=== PATIENT | male | born 1935 | race Caucasian/White ===

== ENCOUNTER → 2016-09-11 | Outpatient (CLI) | payer MEDICARE, BC ==
[~2016-09-11] MED LIST: /ESOM40CA; COLA100C2; NEUR300C; PERC5TAB8
[2016-09-11 07:49] LABS: MEAN CORPUSCULAR HEMOGLOBIN 31.1 pg (27.0-33.0); MEAN CORPUSCULAR HGB CONC 33.7 g/dl (32.0-36.5); MEAN CORPUSCULAR VOLUME 92.5 fl (80.0-96.0); RED CELL DISTRIBUTION WIDTH 13.3 % (11.5-14.5)
[2016-09-11 08:18] LABS: ALBUMIN 3.4 GM/DL (3.2-5.2); ALBUMIN/GLOBULIN RATIO 0.94 (1.00-1.93); ALKALINE PHOSPHATASE 46 U/L (45-117); ALT/SGPT 19 U/L (12-78); ANION GAP 7 MEQ/L (8-16); AST/SGOT 13 U/L (15-37); BILIRUBIN,TOTAL 0.5 MG/DL (0.2-1.0); BLOOD UREA NITROGEN 17 MG/DL (7-18); CALCIUM LEVEL 9.3 MG/DL (8.8-10.2); CARBON DIOXIDE LEVEL 32 MEQ/L (21-32); CHLORIDE LEVEL 107 MEQ/L (98-107); CHOLESTEROL LEVEL 203 MG/DL (<200); CREATININE FOR GFR 0.94 MG/DL (0.70-1.30); GLOMERULAR FILTRATION RATE > 60.0 (>35); GLUCOSE, FASTING 88 MG/DL (83-110); POTASSIUM SERUM 3.9 MEQ/L (3.5-5.1); SODIUM LEVEL 146 MEQ/L (136-145); TRIGLYCERIDES LEVEL 87 MG/DL (<150)
--- NOTE | 2016-09-11 18:47 | ECGEPIP ---
Stationary ECG Study [facility] Test Date: 2016-09-11 Pat Name: HARRISON SANDERS Department: Room: - Gender: M Strap Buckler: RANDAL : 1935 Requested By: Justice Quinones Order Number: [id number] Reading MD: Bernabe Moy Measurements Intervals [place] Rate: 60 P: 11 AL: 157 QRS: -17 QRSD: 94 T: -1 QT: 390 QTc: 390 Interpretive Statements SINUS RHYTHM WITH ONE SUPRAVENTRICULAR PREMATURE COMPLEX PAC new compared with 04/09/2014. Electronically Signed On 09-11-2016 18:47:31 EDT by Bernabe Moy
== END ==
LOC: M LAB 06:52
PROVIDERS: ATTEND Family Medicine
DX: I20.9 Angina pectoris, unspecified (principal); R94.31 Abnormal electrocardiogram [ECG] [EKG]; Z79.899 Other long term (current) drug therapy

== ENCOUNTER → 2016-09-30 | Outpatient (CLI) | payer MEDICARE, BC ==
[~2016-09-30] MED LIST changes: +ISOVUE-370 76% 100ML VIAL (Q9967) As Ordered ONE
--- NOTE | 2016-09-30 13:43 | REP ---
CT CHEST WITH IV CONTRAST: TECHNIQUE: Axial contrast enhanced images from the thoracic inlet to the upper abdomen using 100 mL Isovue 370 intravenous contrast material with multiplanar reformations. Comparison is made with prior study of 03/11/2009. There is diffuse interstitial fibrotic change bilaterally, which has worsened since the prior exam. There is extensive bilateral subpleural interstitial fibrosis and mild honeycombing in the right lower lobe and bilateral upper lobes. Scattered subcentimeter nodular opacities bilaterally have remained stable since 2008 with no new suspicious nodule identified. There is no consolidative infiltrate. There is no pleural or pericardial effusion. There are atherosclerotic calcifications of the thoracic aorta without aneurysm. No significant adenopathy is seen in the chest. Metallic plate and screws are seen in the lower cervical spine. There is an old compression deformity of L2 vertebral body. There are diffuse degenerative changes of the spine. There is a left renal cyst noted. There is a gallstone in the gallbladder which measures 1.7 cm in diameter. There is a moderate to large hiatal hernia. IMPRESSION: Moderate interstitial fibrotic changes have worsened since prior CT of 03/11/2009. Subcentimeter nodular opacities bilaterally are stable and benign. No suspicious nodule is seen. Increased size of moderate to large hiatal hernia. There is a gallstone in the gallbladder. Signed by Talon Red MD 09/30/2016 07:13 P
== END ==
LOC: M RAD 12:09
PROVIDERS: ATTEND Family Medicine
DX: R91.1 Solitary pulmonary nodule (principal)
CPT/HCPCS: 71260; Q9967

== ENCOUNTER → 2017-01-15 | Outpatient (CLI) | payer MEDICARE, BC ==
[~2017-01-15] MED LIST changes: -ISOVUE-370 76% 100ML VIAL (Q9967) As Ordered ONE
[2017-01-15 07:53] LABS: MEAN CORPUSCULAR HEMOGLOBIN 30.9 pg (27.0-33.0); MEAN CORPUSCULAR HGB CONC 33.5 g/dl (32.0-36.5); MEAN CORPUSCULAR VOLUME 92.4 fl (80.0-96.0); RED CELL DISTRIBUTION WIDTH 13.3 % (11.5-14.5)
[2017-01-15 08:33] LABS: ALBUMIN 3.4 GM/DL (3.2-5.2); ALKALINE PHOSPHATASE 44 U/L (45-117); ALT/SGPT 19 U/L (12-78); ANION GAP 5 MEQ/L (8-16); AST/SGOT 15 U/L (15-37); BILIRUBIN,TOTAL 0.7 MG/DL (0.2-1.0); BLOOD UREA NITROGEN 13 MG/DL (7-18); CALCIUM LEVEL 8.8 MG/DL (8.8-10.2); CARBON DIOXIDE LEVEL 33 MEQ/L (21-32); CHLORIDE LEVEL 108 MEQ/L (98-107); CHOLESTEROL LEVEL 192 MG/DL (<200); CREATININE FOR GFR 0.87 MG/DL (0.70-1.30); GLOMERULAR FILTRATION RATE > 60.0 (>35); GLUCOSE, FASTING 93 MG/DL (83-110); POTASSIUM SERUM 3.9 MEQ/L (3.5-5.1); SODIUM LEVEL 146 MEQ/L (136-145); TOTAL PROTEIN 6.8 GM/DL (6.4-8.2); TRIGLYCERIDES LEVEL 114 MG/DL (<150)
[2017-01-17 09:59] LABS: FOLATE 16.6 NG/ML (>5.4); VITAMIN B12 LEVEL 200 PG/ML (247-911)
== END ==
LOC: M LAB 07:03
PROVIDERS: ATTEND Family Medicine
DX: D64.9 Anemia, unspecified (principal); R53.83 Other fatigue; E03.9 Hypothyroidism, unspecified

== ENCOUNTER → 2017-01-24 | Outpatient (CLI) | payer MEDICARE, BC ==
[~2017-01-24] MED LIST changes: +E-Z-GAS II EFFERVESCENT PACKET (SODIUM BICARB./CITRIC ACID/SIMETHICONE) As Ordered ONE; +E-Z-HD 98% w/w 340GM SUSP BTL As Ordered ONE; +E-Z-PAQUE 96% w/w SUSP 176GM BTL As Ordered ONE
--- NOTE | 2017-01-24 14:00 | REP ---
MR BRAIN WITHOUT AND WITH CONTRAST: HISTORY: Memory loss. CONTRAST: ProHance 14 mL. Scattered punctate areas of increased signal intensity on T2-weighted images are present in the periventricular and subcortical white matter. This represents small vessel ischemic disease. There is no intraparenchymal hemorrhage, infarct, mass or midline shift. The ventricular system and cortical sulci as well as subarachnoid space in the posterior fossa are dilated consistent with moderate volume loss. There is no extracerebral collection. Mucosal thickening is present in the maxillary sinuses and left mastoid air cells. IMPRESSION: 1. Minimal small vessel ischemic disease. 2. Moderate volume loss. Unreviewed
--- NOTE | 2017-01-25 05:56 | REP ---
UPPER GI EXAMINATION: The procedure was performed by NBA Vazquez, under the direct supervision of Dr. Red. All imaging was reviewed with Dr. Red prior to dictation. The patient was able to ingest liquid barium in a quantity sufficient to produce a single contrast examination. He was unable to retain the air for a double contrast examination. The oral and pharyngeal stages of deglutition appeared unremarkable. Esophageal transport was prompt and efficient. There was no evidence of esophagitis, stricture or mucosal ring. There was a moderate size hiatal hernia. Gastroesophageal reflux was observed to the level of the riky. The stomach laird were normally outlined. The rugal folds were smooth and regular. There was no evidence of gastritis, neoplasm or ulcerative disease. The duodenal laird are normally outlined. There was no evidence of duodenitis, peptic ulcer disease or neoplasm. The visualized portion of the proximal small bowel was normal in course and caliber. IMPRESSION: Gastroesophageal reflux to above the level of the riky. Moderate size hiatal hernia. Somewhat limited exam due to the patient not being able to retain the air crystals. Fluoroscopy time 3 minutes and 10 seconds. Reviewed by NBA Santillan 01/25/2017 08:19 AEdited and Signed by Talon Red MD 01/25/2017 05:09 P
== END ==
LOC: M RAD 09:15
PROVIDERS: ATTEND Family Medicine
DX: R41.3 Other amnesia (principal); R13.10 Dysphagia, unspecified; I73.9 Peripheral vascular disease, unspecified; G31.9 Degenerative disease of nervous system, unspecified; K21.9 Gastro-esophageal reflux disease without esophagitis; K44.9 Diaphragmatic hernia without obstruction or gangrene
CPT/HCPCS: 70553; 74241; A9576

== ENCOUNTER → 2017-10-03 | Outpatient (CLI) | payer MEDICARE, BC | LOC: M RAD 08:11 | DX: R91.1 Solitary pulmonary nodule (principal) | CPT/HCPCS: 71250 ==

== ENCOUNTER → 2017-12-05 | Outpatient (REF) | payer MEDICARE, BC ==
[2017-12-05 12:49] LABS: BASO # 0.1 10^3/uL (0.0-0.2); EOS # 0.2 10^3/uL (0.0-0.50); EOS % 3.4 % (0.0-3.0); HEMATOCRIT 44.1 % (42.0-52.0); HEMOGLOBIN 14.4 g/dl (13.5-17.5); IMMATURE GRANULOCYTE % 0.7 % (0-3.0); LYMPH # 1.3 10^3/uL (1.5-4.5); LYMPH % 22.4 % (24.0-44.0); MEAN CORPUSCULAR HEMOGLOBIN 30.9 pg (27.0-33.0); MEAN CORPUSCULAR HGB CONC 32.7 g/dl (32.0-36.5); MEAN CORPUSCULAR VOLUME 94.6 fl (80.0-96.0); MONO # 0.3 10^3/uL (0.0-0.8); MONO % 5.5 % (0.0-5.0); NEUTROPHILS # 3.9 10^3/uL (1.8-7.7); PLATELET COUNT, AUTOMATED 242 10^3/uL (150-450); RED BLOOD COUNT 4.66 10^6/uL (4.30-6.10); RED CELL DISTRIBUTION WIDTH 13.5 % (11.5-14.5); WHITE BLOOD COUNT 5.8 10^3/uL (4.0-10.0)
[2017-12-05 13:16] LABS: ALBUMIN 3.5 GM/DL (3.2-5.2); ALBUMIN/GLOBULIN RATIO 0.88 (1.00-1.93); ALKALINE PHOSPHATASE 55 U/L (45-117); ALT/SGPT 19 U/L (12-78); ANION GAP 8 MEQ/L (8-16); AST/SGOT 16 U/L (7-37); BILIRUBIN,TOTAL 0.7 MG/DL (0.2-1.0); BLOOD UREA NITROGEN 18 MG/DL (7-18); CALCIUM LEVEL 9.7 MG/DL (8.8-10.2); CARBON DIOXIDE LEVEL 28 MEQ/L (21-32); CHLORIDE LEVEL 108 MEQ/L (98-107); CREATININE FOR GFR 0.99 MG/DL (0.70-1.30); GLOMERULAR FILTRATION RATE > 60.0 (>35); GLUCOSE, FASTING 118 MG/DL (70-100); POTASSIUM SERUM 4.5 MEQ/L (3.5-5.1); SODIUM LEVEL 144 MEQ/L (136-145); TOTAL PROTEIN 7.5 GM/DL (6.4-8.2)
[2017-12-05 13:18] LABS: FOLATE 12.3 NG/ML; VITAMIN B12 LEVEL 744 PG/ML
[2017-12-13 00:07] LABS: VITAMIN B6,PYRIDOXAL PHOSPHATE 39.7 ug/L (5.3-46.7)
== END ==
LOC: M LABNEURO 08:14
DX: E53.1 Pyridoxine deficiency (principal); E53.8 Deficiency of other specified B group vitamins
CPT/HCPCS: 82746

== ENCOUNTER 2019-01-04 17:31 | Emergency (ER) | payer MEDICARE, BC ==
[~2019-01-04] VITALS: Ht 172.7 cm; Wt 63.9 kg
[~2019-01-04 17:31] MED LIST changes: -/ESOM40CA; -E-Z-GAS II EFFERVESCENT PACKET (SODIUM BICARB./CITRIC ACID/SIMETHICONE) As Ordered ONE; -E-Z-HD 98% w/w 340GM SUSP BTL As Ordered ONE; -E-Z-PAQUE 96% w/w SUSP 176GM BTL As Ordered ONE; +NEXI1CAP3
[2019-01-04 18:17] LABS: BASO # 0.1 10^3/uL (0.0-0.2); BASO % 0.7 % (0.0-1.0); EOS # 0.2 10^3/uL (0.0-0.5); EOS % 2.8 % (0.0-3.0); HEMATOCRIT 38.7 % (42.0-52.0); HEMOGLOBIN 12.5 g/dl (13.5-17.5); LYMPH # 1.6 10^3/uL (1.5-5.0); LYMPH % 18.1 % (24.0-44.0); MEAN CORPUSCULAR HGB CONC 32.3 g/dl (32.0-36.5); MEAN CORPUSCULAR VOLUME 92.8 fl (80.0-96.0); MONO # 0.5 10^3/uL (0.0-0.8); MONO % 5.6 % (0.0-5.0); NEUTROPHILS # 6.2 10^3/uL (1.5-8.5); NEUTROPHILS % 72.6 % (36.0-66.0); PLATELET COUNT, AUTOMATED 275 10^3/uL (150-450); RED BLOOD COUNT 4.17 10^6/uL (4.30-6.10); WHITE BLOOD COUNT 8.5 10^3/uL (4.0-10.0)
[2019-01-04 18:37] LABS: ALBUMIN 3.3 GM/DL (3.2-5.2); ALT/SGPT 17 U/L (12-78); BILIRUBIN,DIRECT 0.1 MG/DL (0.0-0.2); BILIRUBIN,TOTAL 0.5 MG/DL (0.2-1.0); BLOOD UREA NITROGEN 12 MG/DL (7-18); CALCIUM LEVEL 9.6 MG/DL (8.8-10.2); CARBON DIOXIDE LEVEL 33 MEQ/L (21-32); CHLORIDE LEVEL 109 MEQ/L (98-107); CREATININE FOR GFR 0.94 MG/DL (0.70-1.30); GLOMERULAR FILTRATION RATE > 60.0 (>35); GLUCOSE, FASTING 134 MG/DL (70-100); LIPASE 72 U/L (73-393); POTASSIUM SERUM 3.5 MEQ/L (3.5-5.1); SODIUM LEVEL 146 MEQ/L (136-145); TOTAL PROTEIN 7.2 GM/DL (6.4-8.2)
[2019-01-04] MEDS ORDERED: MEMA1TAB2 PO (18:44)
[2019-01-04] MEDS ORDERED: MELA10TA PO (18:44)
[2019-01-04] MEDS ORDERED: B-12100021 PO (18:44)
[2019-01-04] MEDS ORDERED: CLON0.25 PO (18:44)
[2019-01-04] MEDS ORDERED: DONE10TA90 PO (18:44)
[2019-01-04] MEDS ORDERED: ISOVUE-370 76% 100ML VIAL (Q9967) As Ordered ONE (19:39)
--- NOTE | 2019-01-04 20:43 | REPVR ---
EXAM: CT Abdomen and Pelvis With Contrast EXAM DATE/TIME: 01/04/2019 8:04 PM CLINICAL HISTORY: 83 years old, male; Abdominal pain; Generalized; Additional info: Bloode diarrhea, diffuse abd pain TECHNIQUE: Imaging protocol: Computed tomography of the abdomen and pelvis with intravenous contrast. Radiation optimization: All CT scans at this facility use at least one of these dose optimization techniques: automated exposure control; mA and/or kV adjustment per patient size (includes targeted exams where dose is matched to clinical indication); or iterative reconstruction. Contrast material: ISOVUE 370; Contrast volume: 100 ml; Contrast route: IV; COMPARISON: CR Pelvis Ap ONLY 03/21/2013 10:04 AM FINDINGS: Lungs: Subpleural interstitial coarsening with cystic changes and minimal scattered bullous change primarily in the anterior lower lobes. Slightly irregular subpleural nodule in the posterior left lower lobe measuring 5 mm which is near but not in contact with the pleural surface. Mediastinum: Minimal hiatal hernia. Liver: The liver attenuation is 83 Hounsfield units and the spleen is 154 Hounsfield units. Small scattered vague foci of increased enhancement in the right hepatic lobe which measure 8 mm or less. Gallbladder and bile ducts: There is a gallstone in the gallbladder measuring 2.1 cm. The gallbladder is somewhat contracted. Pancreas: Normal. No ductal dilation. Spleen: Normal. No splenomegaly. Adrenals: Normal. No mass. Kidneys and ureters: There is a left renal cyst measuring up to 7.3 cm. Stomach and bowel: Fluid to the level of rectum consistent with diarrhea. There is colonic diverticulosis without evidence of diverticulitis. Appendix: No evidence of appendicitis. Intraperitoneal space: Unremarkable. No free air. No significant fluid collection. Vasculature: There is mild calcification of the abdominal aorta with extension into the iliac arteries. Lymph nodes: Unremarkable. No enlarged lymph nodes. Bladder: Unremarkable as visualized. Reproductive: Unremarkable as visualized. Bones/joints: Central compression of L2 and superior endplate depression of L4 which appear chronic. There is facet arthropathy and calcified posterior protrusion of L4-L5 with moderately severe secondary spinal stenosis. There is mild spinal stenosis at L3-L4. Soft tissues: Surgical clips in the pelvic anterior abdominal wall. IMPRESSION: 1. Subpleural interstitial prominence with cystic changes suggesting pulmonary fibrosis. 2. Slightly irregular posterior left lower lobe nodule measuring 5 mm. For patients at low risk (minimal or absent history of smoking and of other known risk factors), no routine follow-up is indicated. For patients at high risk (history of smoking or of other known risk factors), consider optional CT at 12 months. (Kirk et al., Fleischner Society, 2017). 3. Minimal hiatal hernia. 4. Colonic fluid to the rectum consistent with diarrhea. 5. Fatty infiltration of the liver. There are some vague foci of increased enhancement in the right hepatic lobe which are nonspecific. 6. Cholelithiasis. 7. Colonic diverticulosis without diverticulitis. 8. Degenerative changes of the lumbar spine with moderately severe secondary spinal stenosis at L4-L5. Electronically signed by: Davion Dobson On 01/04/2019 20:42:56 PM
[2019-01-04] MEDS ORDERED: NS 500 ML IV ONE (20:45)
[2019-01-05 00:16] VITALS: BP 142/80
[2019-01-05] MEDS ORDERED: COLA100C5 PO (00:19)
[2019-01-05] MEDS ORDERED: ANUS2.5C2 TOP (00:19)
--- NOTE | 2019-01-07 13:00 | ED PDOC ---
Post-Departure Follow-Up dr gutierrez faxed formal report of ct abd/p for fu Irina Juarez MD Jan 07, 2019 13:00
== END 2019-01-05 00:23 | disposition home or self-care (01) ==
LOC: M ED 17:31
DX: R19.7 Diarrhea, unspecified (principal); K62.5 Hemorrhage of anus and rectum; R91.1 Solitary pulmonary nodule; K44.9 Diaphragmatic hernia without obstruction or gangrene; K76.0 Fatty (change of) liver, not elsewhere classified; K80.20 Calculus of gallbladder without cholecystitis without obstruction; K57.30 Diverticulosis of large intestine without perforation or abscess without bleeding; M48.061 Spinal stenosis, lumbar region without neurogenic claudication; Z79.899 Other long term (current) drug therapy
CPT/HCPCS: 74177; 80053; 81001; 82248; 83690; 85025; 87507; 96360; 96361; 99284; Q9967

== ENCOUNTER → 2019-01-08 | Outpatient (CLI) | payer MEDICARE, BC ==
[~2019-01-08] MED LIST changes: +ANUS2.5C2 TOP; +B-12100021 PO; +CLON0.25 PO; +COLA100C5 PO; +DONE10TA90 PO; +MELA10TA PO; +MEMA10TA19 PO
[2019-01-08 09:37] LABS: HEMATOCRIT 36.3 % (42.0-52.0); HEMOGLOBIN 11.6 g/dl (13.5-17.5); MEAN CORPUSCULAR HEMOGLOBIN 30.3 pg (27.0-33.0); MEAN CORPUSCULAR VOLUME 94.8 fl (80.0-96.0); PLATELET COUNT, AUTOMATED 232 10^3/uL (150-450); RED BLOOD COUNT 3.83 10^6/uL (4.30-6.10); WHITE BLOOD COUNT 6.4 10^3/uL (4.0-10.0)
[2019-01-08 10:21] LABS: ALBUMIN 3.1 GM/DL (3.2-5.2); ALT/SGPT 14 U/L (12-78); BILIRUBIN,TOTAL 0.6 MG/DL (0.2-1.0); BLOOD UREA NITROGEN 11 MG/DL (7-18); CALCIUM LEVEL 9.3 MG/DL (8.8-10.2); CARBON DIOXIDE LEVEL 31 MEQ/L (21-32); CHLORIDE LEVEL 108 MEQ/L (98-107); CREATININE FOR GFR 0.88 MG/DL (0.70-1.30); GLOMERULAR FILTRATION RATE > 60.0 (>35); GLUCOSE, FASTING 88 MG/DL (70-100); POTASSIUM SERUM 3.9 MEQ/L (3.5-5.1); SODIUM LEVEL 146 MEQ/L (136-145); TOTAL PROTEIN 6.1 GM/DL (6.4-8.2)
== END ==
LOC: M LAB 08:25
PROVIDERS: ATTEND Family Medicine
DX: I10 Essential (primary) hypertension (principal); E86.0 Dehydration; R19.7 Diarrhea, unspecified

== ENCOUNTER → 2019-01-08 | Outpatient (REF) | payer MEDICARE, BC ==
[2019-01-08 15:03] LABS: CLOSTRIDIUM DIFFICILE PCR NEGATIVE (NEGATIVE)
== END ==
LOC: M LAB REF 13:27
PROVIDERS: ATTEND Family Medicine
DX: I10 Essential (primary) hypertension (principal); E86.0 Dehydration; R19.7 Diarrhea, unspecified

== ENCOUNTER 2020-08-27 06:36 | Emergency (ER) | payer MEDICARE, BC ==
--- NOTE | 2020-08-27 09:05 | REP ---
INDICATION: pain. COMPARISON: Comparison left shoulder radiographs are from 02 January 2010.. TECHNIQUE: Three views. FINDINGS: There is osteoarthritis in the acromioclavicular joint with periarticular soft tissue calcification superiorly. This is more pronounced than on the 18/02 prior study. The glenohumeral and acromioclavicular joints are normally aligned. There is some inferior glenoid spurring as well. There is diffuse osteopenia. Fusion hardware is noted in the cervical spine and there is an infiltrate in the left upper lobe of the lung suggesting pneumonia. 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 Diffuse osteopenia. No acute bony abnormality. Left lung infiltrate. <Electronically signed by Bharathi Reeves > 08/27/20 [id number]
--- NOTE | 2020-08-27 09:06 | REP ---
INDICATION: pain, left shoulder/ chest. COMPARISON: Comparison chest x-ray November 18, 2014. TECHNIQUE: Portable upright AP chest radiograph. FINDINGS: Patient is status post lower cervical discectomy and fusion plating. There is an old healed clavicle fracture on the right. No acute bony abnormality is seen. There is diffuse interstitial fibrosis pattern in the lung pablo. This is not new but is more pronounced than on the November 18, 2014 study. No acute infiltrate is seen. The interstitial disease is new when compared with a prior shoulder radiographs from 2009. Pleural angles are sharp. Heart size is borderline. The aorta is calcific and tortuous. Pulmonary vasculature is not increased. IMPRESSION: Diffuse interstitial fibrosis pattern in the lung pablo somewhat more pronounced but not new when compared with the 2014 study. No acute infiltrate. Borderline heart size.. <Electronically signed by Bharathi Reeves > 08/27/20 [id number]
[2020-08-27 09:50] LABS: BASO # 0.1 10^3/uL (0.0-0.2); BASO % 0.5 % (0.0-1.0); EOS # 0.1 10^3/uL (0.0-0.5); EOS % 0.7 % (0.0-3.0); HEMATOCRIT 45.4 % (42.0-52.0); HEMOGLOBIN 14.7 g/dl (13.5-17.5); LYMPH # 1.3 10^3/uL (1.5-5.0); LYMPH % 11.8 % (24.0-44.0); MEAN CORPUSCULAR HEMOGLOBIN 30.1 pg (27.0-33.0); MEAN CORPUSCULAR HGB CONC 32.4 g/dl (32.0-36.5); MEAN CORPUSCULAR VOLUME 92.8 fl (80.0-96.0); MONO # 0.8 10^3/uL (0.0-0.8); MONO % 7.9 % (2.0-8.0); NEUTROPHILS # 8.4 10^3/uL (1.5-8.5); NEUTROPHILS % 78.7 % (36.0-66.0); PLATELET COUNT, AUTOMATED 302 10^3/uL (150-450); RED BLOOD COUNT 4.89 10^6/uL (4.30-6.10); WHITE BLOOD COUNT 10.7 10^3/uL (4.0-10.0)
[2020-08-27 10:08] LABS: ERYTHROCYTE SEDIMENTATION RATE 60 mm/hr (0-20)
[2020-08-27 10:10] LABS: BLOOD UREA NITROGEN 12 MG/DL (7-18); CALCIUM LEVEL 9.7 MG/DL (8.8-10.2); CARBON DIOXIDE LEVEL 30 MEQ/L (21-32); CHLORIDE LEVEL 105 MEQ/L (98-107); CREATININE FOR GFR 0.74 MG/DL (0.70-1.30); GLOMERULAR FILTRATION RATE > 60.0 (>35); GLUCOSE, FASTING 104 MG/DL (70-100); POTASSIUM SERUM 4.2 MEQ/L (3.5-5.1); SODIUM LEVEL 139 MEQ/L (136-145); URIC ACID 3.4 MG/DL (3.5-7.2)
[2020-08-27] MEDS ORDERED: KETOROLAC 30 MG/ML 1ML VIAL IM ONE (11:50)
--- NOTE | 2020-08-27 12:50 | REP ---
INDICATION: abnormal chest xray, shoulder pain. COMPARISON: 10/03/2017. TECHNIQUE: CT chest performed without the use of intravenous contrast. Sagittal and coronal reconstruction images are performed. FINDINGS: Lungs: There are moderate bilateral emphysematous and fibrotic changes again noted. There is a stable subcentimeter nodular opacity posteriorly in the left apex on image 21, and another in the right upper lobe posteromedially on image 25. There is a stable subpleural subcentimeter nodular density posteriorly in the superior segment of the left lower lobe on image number 45. In the posteroinferior lower lobes bilaterally there is mild increased hazy parenchymal opacity when compared to the prior exam, which may represent mildly increased atelectasis, infiltrate or fibrosis. Mediastinum: No gross adenopathy. Valerie: No gross adenopathy. Axilla: No gross adenopathy. Pleura: No effusion. Heart: Not enlarged. Thoracic aorta: No aneurysm. Upper abdominal structures: There is moderate hiatal hernia. There is a gallstone in the gallbladder. A cystic structure is partially visualized in the mid left kidney.. Visualized osseous structures: There are diffuse degenerative changes of the spine. There is a moderate compression deformity of the T5 vertebral body of indeterminate age, which is new when compared to the prior study of 10/03/2017.. IMPRESSION: Chronic fibrotic changes as discussed above. In the posteroinferior lower lobes bilaterally there is mild increased hazy parenchymal opacity when compared to the prior exam, which may represent mildly increased atelectasis, infiltrate or fibrosis. Moderate compression deformity of the T5 vertebral body of indeterminate age, new when compared to the prior study of 10/03/2017. <Electronically signed by Talon Red > 08/27/20 [id number]
[2020-08-27 13:45] VITALS: BP 125/57
[2020-08-27] MEDS ORDERED: APAP325T4 PO (13:49)
[2020-08-27] MEDS ORDERED: KETO10TAB PO (13:49)
--- NOTE | 2020-08-30 07:03 | ED PDOC ---
Post-Departure Follow-Up ct chest faxed to dr gutierrez for fu Irina Juarez MD August 30, 2020 07:03
== END 2020-08-27 14:09 | disposition home or self-care (01) ==
LOC: M ED 06:36
DX: S22.050A Wedge compression fracture of T5-T6 vertebra, initial encounter for closed fracture (principal); X58.XXXA Exposure to other specified factors, initial encounter; Y92.89 Other specified places as the place of occurrence of the external cause; Y93.89 Activity, other specified; Y99.8 Other external cause status; J84.10 Pulmonary fibrosis, unspecified; M48.00 Spinal stenosis, site unspecified; Z79.899 Other long term (current) drug therapy
CPT/HCPCS: 36415; 71045; 71250; 73030; 80048; 84550; 85025; 85652; 86140; 96372; 99284; J1885

== ENCOUNTER → 2020-12-16 | Outpatient (CLI) | payer MEDICARE, BC ==
[~2020-12-16] MED LIST changes: +APAP325T4 PO; +KETO10TAB PO
--- NOTE | 2020-12-16 14:25 | REP ---
INDICATION: PAIN AFTER FALL. COMPARISON: None. TECHNIQUE: Four views without a perfect lateral FINDINGS: There is no evidence of an acute fracture or gross joint effusion. Without perfect lateral technique a small effusion could be obscured. IMPRESSION: No evidence of an acute abnormality. Limitations as described above. <Electronically signed by Steven Hernández > 12/16/20 [id number]
--- NOTE | 2020-12-16 14:27 | REP ---
INDICATION: PAIN AFTER FALL. COMPARISON: None. TECHNIQUE: Two views FINDINGS: Limited evaluation of the proximal humerus due to underpenetration of the radiographic beam. There is no gross fracture or destructive osseous lesion IMPRESSION: As above. Consider repeat of the proximal humerus <Electronically signed by Steven Hernández > 12/16/20 [id number]
--- NOTE | 2020-12-16 15:02 | REP ---
INDICATION: PAIN AFTER FALL. COMPARISON: 08/27/2020 TECHNIQUE: AP and scapular Y-views. FINDINGS: There is a distal clavicular fracture. The acromioclavicular joint is maintained. The glenohumeral relationship is unchanged from the prior exam. Old left-sided rib fractures are noted status quo. IMPRESSION: Acute distal clavicle fracture. <Electronically signed by Steven Hernández > 12/16/20 [id number]
--- NOTE | 2020-12-16 16:05 | REP ---
INDICATION: PAIN AFTER FALL. COMPARISON: None. TECHNIQUE: Two views left clavicle FINDINGS: There is a distal clavicle fracture IMPRESSION: As above <Electronically signed by Steven Hernández > 12/16/20 [id number]
== END ==
LOC: M SOG 13:23
PROVIDERS: ATTEND Student in an Organized Health Care Education/Training Program
DX: M25.512 Pain in left shoulder (principal); M79.602 Pain in left arm; M25.522 Pain in left elbow; W18.30XA Fall on same level, unspecified, initial encounter; Y92.009 Unspecified place in unspecified non-institutional (private) residence as the place of occurrence of the external cause; S42.002A Fracture of unspecified part of left clavicle, initial encounter for closed fracture

== ENCOUNTER 2020-12-23 07:57 | Inpatient (IN) | payer MEDICARE, BC ==
[~2020-12-23] VITALS: Ht 175.3 cm; Wt 59.5 kg
[2020-12-23 09:06] LABS: BASO # 0.1 10^3/uL (0.0-0.2); BASO % 0.5 % (0.0-1.0); EOS % 0.1 % (0.0-3.0); HEMATOCRIT 43.7 % (42.0-52.0); LYMPH # 1.4 10^3/uL (1.5-5.0); LYMPH % 9.9 % (24.0-44.0); MEAN CORPUSCULAR HEMOGLOBIN 28.9 pg (27.0-33.0); MEAN CORPUSCULAR VOLUME 90.1 fl (80.0-96.0); MONO # 1.1 10^3/uL (0.0-0.8); MONO % 7.8 % (2.0-8.0); NEUTROPHILS # 11.6 10^3/uL (1.5-8.5); NEUTROPHILS % 81.2 % (36.0-66.0); PLATELET COUNT, AUTOMATED 454 10^3/uL (150-450); RED BLOOD COUNT 4.85 10^6/uL (4.30-6.10); WHITE BLOOD COUNT 14.3 10^3/uL (4.0-10.0)
[2020-12-23 09:23] LABS: INR 1.07; PROTHROMBIN TIME 14.3 SECONDS (12.7-14.5)
--- NOTE | 2020-12-23 09:38 | REP ---
INDICATION: CHEST PAIN COMPARISON: 08/27/2020 TECHNIQUE: Portable AP view of the chest FINDINGS: The mediastinum and cardiac silhouette are stable and within normal limits for portable technique. The lung apblo demonstrate diffuse chronic interstitial changes and fibrosis. No obvious acute consolidation, effusion, or pneumothorax. Skeletal structures are intact. IMPRESSION: Chronic appearing changes. No obvious acute process. <Electronically signed by Filippo Olsen > 12/23/20 0982
[2020-12-23 09:39] LABS: FREE THYROXINE INDEX 3.6 % (1.4-3.8); T UPTAKE 39 % (33-40); THYROXINE (T4) 9.2 UG/DL (4.5-12.0); TROPONIN I < 0.02 NG/ML (< 0.10)
[2020-12-23 10:42] LABS: BLOOD UREA NITROGEN 21 MG/DL (7-18); CHLORIDE LEVEL 105 MEQ/L (98-107); GLUCOSE, FASTING 112 MG/DL (70-100); POTASSIUM SERUM 4.9 MEQ/L (3.5-5.1); SODIUM LEVEL 140 MEQ/L (136-145)
[2020-12-23 10:43] LABS: ALBUMIN 2.6 GM/DL (3.2-5.2); ALT/SGPT 18 IU/L (0-32); BILIRUBIN,DIRECT 0.4 MG/DL (0.0-0.2); BILIRUBIN,TOTAL 1.1 MG/DL (0.2-1.0); CALCIUM LEVEL 9.9 MG/DL (8.8-10.2); CARBON DIOXIDE LEVEL 30 mmol/L (20-29); TOTAL PROTEIN 7.7 GM/DL (6.4-8.2)
[2020-12-23 10:44] LABS: CREATININE FOR GFR 0.88 MG/DL (0.70-1.30); GLOMERULAR FILTRATION RATE > 60.0 (>35); LIPASE 31 U/L (73-393)
[2020-12-23 10:58] LABS: NT-PRO BNP 2173 PG/ML (<450)
[2020-12-23] MEDS ORDERED: PILL CUTTER 1 EACH XX ONE (12:04)
[2020-12-23] MEDS ORDERED: METOPROLOL TART 25 MG TABLET PO ONE (12:05)
[2020-12-23 13:07] LABS: RSV AMPLIFICATION NEGATIVE (NEGATIVE)
[2020-12-23] MEDS ORDERED: HOME MED LIST COMPLETE! XX SCH (14:55)
[2020-12-23] MEDS ORDERED: ACETAMINOPHEN TAB 650MG DOSE (2X325MG) PO PRN (15:55)
--- NOTE | 2020-12-23 16:28 | HPEPDOC ---
General Date of Admission 12/23/20 Date of Service: Dec 23, 2020 Chief Complaint The patient is a 85-year-old male admitted with a reason for visit of A FEB. Source: Family, RN/MD History of Present Illness 85-year-old male with history of Alzheimer's dementia, GERD, kidney stones in 2008, history of spinal stenosis status post surgery in 1995, had a fall with left distal clavicular fracture on 12/16/2020. Today woke up at around 4 AM and went to check on patient who sleeps in a recliner downstairs and found the patient had slid out of the chair and was sitting on the floor with head resting on the chair cushion so called EMS to help pick him up. EMS on arrival place the patient on cardiac nurse specialist and noted the patient to be in A. fib so brought him to the emergency room. In the ED patient was noted to be in sinus rhythm on initial arrival EKG however while on the monitor being evaluated it was noted that he was having paroxysmal episodes of A. fib. His heart rate is mostly controlled. also reported that since he broke his shoulder he has been using a walker and she has been needing to help him a lot with mobilization. Till 1 week ago he was independent in his ambulation and did not need any assistive device. Patient was evaluated by PT in the emergency room and felt that he was unsafe for discharge so patient is being admitted to the hospitalist service. Patient recognizes his name when called follow simple commands after several tries does better with 's direction. Does not know where he is. Did greet me. denies any pain or discomfort anywhere. As per he does not have any dysphagia and no issues with swallowing though he needs help with his eating. As per he spits a lot which she reports is a side effect from his dementia medication. he is able to vocalize when he needs to go to the bathroom and has been ambulating to the bathroom with walker. Home Medications No Active Prescriptions or Reported Meds Allergies Coded Allergies: No Known Allergies (Unverified , 01/04/19) Past Medical History Medical History Fall and left distal clavicular fracture on 12/16/2020, advanced Alzheimer's dementia, GERD, kidney stones in 2008, history of spinal stenosis status post surgery in 1995, inguinal hernia surgery x3, appendectomy in 1971 Family History Could not give any family history because of dementia Social History * Smoker: Denies Alcohol: other (1 alcoholic drink a day. Has not drunk in 1 week) Drugs: denies A-FIB/CHADSVASC A-FIB History Current/History of A-Fib/PAF?: No Review of Systems Constitutional: Denies: Chills, Fever, Night Sweats Eyes: Denies: Pain, Vision change ENT: Denies: Head Aches, Ear Pain, Dysphagia Skin: Denies: Rash, Lesions, Breakdown Pulmonary: Denies: Dyspnea, Cough Cardiovascular: Denies: Chest Pain, Palpitations, Orthopnea, Paroxysmal Noc. Dyspnea, Lt Headedness Gastrointestinal: Denies: Nausea, Vomiting, Abdominal Pain, Diarrhea Genitourinary: Denies: Dysuria, Frequency, Incontinence, Retention Hematologic: Denies: Bruising, Bleeding Excessively Musculoskeletal: Denies: Neck Pain, Back Pain, Joint Pain, Muscle Pain, Spasms Neurological: Reports: Confusion Physical Examination General Exam: Positive: Alert, Cooperative, No Acute Distress, Other (Oriented only to name) Eye Exam: Positive: PERRLA, Conjunctiva & lids normal, EOMI; Negative: Sclera icteric ENT Exam: Positive: Atraumatic, Mucous membr. moist/pink, Pharynx Normal Neck Exam: Positive: Supple; Negative: JVD, thyromegaly Chest Exam: Positive: Clear to auscultation, Normal air movement Heart Exam: Positive: Rate Normal, Irregular Rhythm, Normal S1, Normal S2; Negative: Murmurs, Rubs Abdomen Exam: Positive: Normal bowel sounds, Soft; Negative: Tenderness Extremity Exam: Negative: Clubbing, Cyanosis, Edema Neuro Exam: Positive: Normal Speech, Normal Tone, Other (4/4 strength in all 4 extremities.) Vital Signs Vital Signs Date Time Temp Pulse Resp B/P (MAP) Pulse Ox O2 Delivery O2 Flow Rate FiO2 12/23/20 12:15 111 18 108/58 (75) 96 Room Air 12/23/20 08:33 98.2 Laboratory Data Labs 24H Laboratory Tests 2 12/23/20 08:51: Prothrombin Time 14.3H, Prothromb Time International Ratio 1.07, Anion Gap 5L, Glomerular Filtration Rate > 60.0, Calcium Level 9.9, Total Bilirubin 1.1H, Direct Bilirubin 0.4H, Aspartate Amino Transf (AST/SGOT) 18, Alanine Aminotransferase (ALT/SGPT) 18, Alkaline Phosphatase 92, VB-Dtd-E-Type Natriuretic Peptide 2173H, Total Protein 7.7, Albumin 2.6L, Albumin/Globulin Ratio 0.5, Lipase 31L 12/23/20 08:52: Immature Granulocyte % (Auto) 0.5, Neutrophils (%) (Auto) 81.2H, Lymphocytes (%) (Auto) 9.9L, Monocytes (%) (Auto) 7.8, Eosinophils (%) (Auto) 0.1, Basophils (%) (Auto) 0.5, Neutrophils # (Auto) 11.6H, Lymphocytes # (Auto) 1.4L, Monocytes # (Auto) 1.1H, Eosinophils # (Auto) 0.0, Basophils # (Auto) 0.1, Nucleated Red Blood Cells % (auto) 0.0, Troponin I < 0.02, Thyroid Stimulating Hormone (TSH) 2.780, Free Thyroxine Index 3.6, Thyroxine (T4) 9.2, Triiodothyronine (T3) Uptake 39 12/23/20 12:12: Coronavirus (COVID-19)(PCR) NEGATIVE, Influenza Type A (RT-PCR) NEGATIVE, Influenza Type B (RT-PCR) NEGATIVE, Respiratory Syncytial Virus (PCR) NEGATIVE CBC/BMP Laboratory Tests 12/23/20 08:51 12/23/20 08:52 Assessment/Plan 85-year-old male with history of Alzheimer's dementia, GERD, kidney stones in 2008, history of spinal stenosis status post surgery in 1995, had a fall with left distal clavicular fracture on 12/16/2020. Today woke up at around 4 AM and went to check on patient who sleeps in a recliner downstairs and found the patient had slid out of the chair and was sitting on the floor with head resting on the chair cushion so called EMS to help pick him up. EMS on arrival place the patient on cardiac nurse specialist and noted the patient to be in A. fib so brought him to the emergency room. In the ED patient was noted to be in sinus rhythm on initial arrival EKG however while on the monitor being evaluated it was noted that he was having paroxysmal episodes of A. fib. His heart rate is mostly controlled. also reported that since he broke his shoulder he has been using a walker and she has been needing to help him a lot with mobilization. Till 1 week ago he was independent in his ambulation and did not need any assistive device. Patient was evaluated by PT in the emergency room and felt that he was unsafe for discharge so patient is being admitted to the hospitalist service. Paroxysmal A. fib Noted in desk monitor We will get another EKG Rate controlled after receiving 12.5 mg of metoprolol in the ED We will monitor on telemetry overnight Not a good candidate for anticoagulation with his history of falls and dementia Generalized deconditioning and difficulty in ambulation Patient had a recent clavicular fracture 1 week ago since then he has been using a walker Will get PT evaluation for him Alzheimer's dementia with sundowning as per Not on any meds Sitter if needed Protein calorie malnutrition BMI is 19.6, albumin of 2.6 Probably due to advancing dementia and age with decreasing oral intake Elevated BNP No signs of fluid overload clinically Leukocytosis This is likely reactive I do not see any signs or symptoms of infection Plan / VTE VTE Prophylaxis Ordered?: Yes Ashley Doshi MD Dec 23, 2020 16:28
--- NOTE | 2020-12-23 16:51 | REP ---
INDICATION: altered COMPARISON: None. TECHNIQUE: Axial noncontrast images from the skull base to the thoracic inlet with coronal reformations. This CT examination was performed using the following dose reduction techniques: Automated exposure control, adjustment of mA and/or kv according to the patient's size, and use of iterative reconstruction technique. FINDINGS: Atrophy with periventricular leukomalacia and microvascular ischemic changes are appreciated. The ventricles and sulci are symmetric. Red-white differentiation is maintained. There is no evidence for acute intracranial hemorrhage, mass/mass effect, pathology or infarction. No extra-axial fluid collection. Calvarium is intact. Paranasal sinuses and mastoid air cells are clear. IMPRESSION: Atrophy and microvascular ischemic changes. No acute intracranial hemorrhage, infarction, or mass/mass effect. <Electronically signed by Filippo Olsen > 12/23/20 [id number]
[2020-12-23 18:20] VITALS: BP 152/89
[2020-12-23 20:00] VITALS: BP_SYST 126; BP_SYST 152; BP_DIAS 56; BP_DIAS 89
[2020-12-23] MEDS: RAMELTEON 8 MG TAB (ROZEREM) PO SCH (20:05)
[2020-12-23] MEDS ORDERED: METOPROLOL TART 12.5 MG PER 1/2 TAB PO ONE (20:15)
--- NOTE | 2020-12-23 20:18 | ECGEPIP ---
[facility] - ED Test Date: 2020-12-23 Pat Name: HARRISON SANDERS Department: Room: - Gender: Male Ticket Dispatcher: : 1935 Requested By: Irena Corona Order Number: [id number] Reading MD: Bernabe Mejia Measurements Intervals [place] Rate: 87 P: 23 [place]: 152 QRS: -23 QRSD: 80 T: -11 QT: 354 QTc: 425 Interpretive Statements Normal sinus rhythm Possible Lateral infarct , age undetermined Low QRS complex voltage in the limb leads Nonspecific ST-T wave abnormalities Electronically Signed on 12-23-2020 20:18:25 EDT by Bernabe Mejia
[2020-12-23 21:42] LABS: MAGNESIUM LEVEL 2.4 MG/DL (1.8-2.4)
[2020-12-24 03:44] VITALS: BP 97/57
[2020-12-24 05:23] LABS: BASO # 0.1 10^3/uL (0.0-0.2); BASO % 0.8 % (0.0-1.0); EOS # 0.2 10^3/uL (0.0-0.5); EOS % 1.6 % (0.0-3.0); HEMATOCRIT 40.8 % (42.0-52.0); HEMOGLOBIN 13.3 g/dl (13.5-17.5); LYMPH # 1.8 10^3/uL (1.5-5.0); LYMPH % 15.1 % (24.0-44.0); MEAN CORPUSCULAR HEMOGLOBIN 29.3 pg (27.0-33.0); MEAN CORPUSCULAR HGB CONC 32.6 g/dl (32.0-36.5); MEAN CORPUSCULAR VOLUME 89.9 fl (80.0-96.0); MONO % 8.8 % (2.0-8.0); NEUTROPHILS # 8.6 10^3/uL (1.5-8.5); NEUTROPHILS % 73.2 % (36.0-66.0); PLATELET COUNT, AUTOMATED 447 10^3/uL (150-450); RED BLOOD COUNT 4.54 10^6/uL (4.30-6.10); WHITE BLOOD COUNT 11.8 10^3/uL (4.0-10.0)
[2020-12-24 05:51] LABS: BLOOD UREA NITROGEN 23 MG/DL (7-18); CALCIUM LEVEL 9.8 MG/DL (8.8-10.2); CARBON DIOXIDE LEVEL 29 MEQ/L (21-32); CHLORIDE LEVEL 106 MEQ/L (98-107); CREATININE FOR GFR 0.82 MG/DL (0.70-1.30); GLOMERULAR FILTRATION RATE > 60.0 (>35); GLUCOSE, FASTING 101 MG/DL (70-100); POTASSIUM SERUM 4.6 MEQ/L (3.5-5.1); SODIUM LEVEL 139 MEQ/L (136-145)
[2020-12-24 07:05] VITALS: BP 124/83
[2020-12-24] MEDS: ENOXAPARIN 40MG/0.4ML SYRINGE (J1650 PER 10MG) SC SCH (09:40)
[2020-12-24] MEDS: METOPROLOL TART 12.5 MG PER 1/2 TAB PO SCH ×2 (09:40→20:59)
[2020-12-24] MEDS ORDERED: SLF 3 ML SYR IV PRN (09:40)
--- NOTE | 2020-12-24 11:24 | IPNPDOC ---
Subjective Date Seen The patient was seen on 12/24/20. Subjective Chief Complaint/HPI Patient does not offer any complaint this morning. Says slept a little last night. He is pleasant calm and cooperative. Son is at bedside. Objective Physical Examination General Exam: Positive: Alert, Cooperative, No Acute Distress, Other (Oriented only to name) Eye Exam: Positive: PERRLA, Conjunctiva & lids normal, EOMI; Negative: Sclera icteric ENT Exam: Positive: Atraumatic, Mucous membr. moist/pink, Pharynx Normal Neck Exam: Positive: Supple; Negative: JVD, thyromegaly Chest Exam: Positive: Clear to auscultation, Normal air movement Heart Exam: Positive: Rate Normal, Irregular Rhythm, Normal S1, Normal S2; Negative: Murmurs, Rubs Abdomen Exam: Positive: Normal bowel sounds, Soft; Negative: Tenderness Extremity Exam: Negative: Clubbing, Cyanosis, Edema Neuro Exam: Positive: Normal Speech, Normal Tone, Other (4/4 strength in all 4 extremities.) Assessment /Plan Assessment 85-year-old male with history of Alzheimer's dementia, GERD, kidney stones in 2008, history of spinal stenosis status post surgery in 1995, had a fall with left distal clavicular fracture on 12/16/2020. Today woke up at around 4 AM and went to check on patient who sleeps in a recliner downstairs and found the patient had slid out of the chair and was sitting on the floor with head resting on the chair cushion so called EMS to help pick him up. EMS on arrival place the patient on job coach and noted the patient to be in A. fib so brought him to the emergency room. In the ED patient was noted to be in sinus rhythm on initial arrival EKG however while on the monitor being evaluated it was noted that he was having paroxysmal episodes of A. fib. His heart rate is m ostly controlled. also reported that since he broke his shoulder he has been using a walker and she has been needing to help him a lot with mobilization. Till 1 week ago he was independent in his ambulation and did not need any assistive device. Patient was evaluated by PT in the emergency room and felt that he was unsafe for discharge so patient is being admitted to the hospitalist service. Paroxysmal A. fib/a flutter Noted in curriculum and assessment coordinator, as symptomatic likely chronic going on for years. Now in sinus rhythm We will start on metoprolol twice a day Not a good candidate for anticoagulation with his history of falls and dementia Generalized deconditioning and difficulty in ambulation Patient had a recent clavicular fracture 1 week ago since then he has been using a walker PT/OT Alzheimer's dementia with owning as per Not on any meds Calm and cooperative and pleasant this morning. Son at bedside Protein calorie malnutrition BMI is 19.6, albumin of 2.6 Probably due to advancing dementia and age with decreasing oral intake Elevated BNP No signs of fluid overload clinically Leukocytosis This is reactive I do not see any signs or symptoms of infection Procalcitonin not elevated Plan/VTE VTE Prophylaxis Ordered?: Yes VS, I&O, 24H, Fishbone Vital Signs/I&O Vital Signs Date Time Temp Pulse Resp B/P (MAP) Pulse Ox O2 Delivery O2 Flow Rate FiO2 12/24/20 09:40 79 113/65 12/24/20 07:05 98.1 22 98 Room Air I&O- Last 24 Hours up to 6 AM0 12/24/20 06:00 Intake Total 100 ml Output Total 200 ml Balance -100 ml Laboratory Data 24H LABS Laboratory Tests 2 12/23/20 12:12: Coronavirus (COVID-19)(PCR) NEGATIVE, Influenza Type A (RT-PCR) NEGATIVE, Influenza Type B (RT-PCR) NEGATIVE, Respiratory Syncytial Virus (PCR) NEGATIVE 12/23/20 20:55: Lactic Acid Level 1.6, Magnesium Level 2.4, Total Creatine Kinase 64, Procalcitonin <0.05 12/24/20 02:39: Urine Color LUIS MIGUEL, Urine Appearance HAZY, Urine pH 5.0, Urine Specific [place] 1.021, Urine Protein 1+H, Urine Glucose (UA) NEGATIVE, Urine Ketones TRACEH, Urine Blood 2+H, Urine Nitrite NEGATIVE, Urine Bilirubin NEGATIVE, Urine Urobilinogen 2.0H, Urine Leukocyte Esterase NEGATIVE, Urine WBC (Auto) 1, Urine RBC (Auto) 94H, Urine Hyaline Casts (Auto) 0, Urine Bacteria (Auto) NEGATIVE, Urine Squamous Epithelial Cells 1, Urine Mucus (Auto) LARGE, Urine Sperm (Auto) 12/24/20 04:59: Immature Granulocyte % (Auto) 0.5, Neutrophils (%) (Auto) 73.2H, Lymphocytes (%) (Auto) 15.1L, Monocytes (%) (Auto) 8.8H, Eosinophils (%) (Auto) 1.6, Basophils (%) (Auto) 0.8, Neutrophils # (Auto) 8.6H, Lymphocytes # (Auto) 1.8, Monocytes # (Auto) 1.0H, Eosinophils # (Auto) 0.2, Basophils # (Auto) 0.1, Nucleated Red Blood Cells % (auto) 0.0, Anion Gap 4L, Glomerular Filtration Rate > 60.0, Calcium Level 9.8 CBC/BMP Laboratory Tests 12/24/20 04:59 Ashley Doshi MD Dec 24, 2020 11:24
[2020-12-24 11:30] VITALS: BP 104/61
[2020-12-24] MEDS: SLF 3 ML SYR IV SCH ×2 (14:00→21:00)
[2020-12-24] MEDS: RAMELTEON 8 MG TAB (ROZEREM) PO SCH (20:59)
[2020-12-24 22:00] VITALS: BP 119/68
[2020-12-25] MEDS: SLF 3 ML SYR IV SCH ×2 (05:01→14:00)
[2020-12-25 05:59] VITALS: BP 143/72
[2020-12-25] MEDS: METOPROLOL TART 12.5 MG PER 1/2 TAB PO SCH ×2 (08:31→20:31)
[2020-12-25] MEDS: ENOXAPARIN 40MG/0.4ML SYRINGE (J1650 PER 10MG) SC SCH (08:33)
[2020-12-25] MEDS: ASPIRIN 81 MG CHEW TABLET PO SCH (13:06)
[2020-12-25 14:00] VITALS: BP 131/81
--- NOTE | 2020-12-25 17:36 | IPNPDOC ---
Subjective Date Seen The patient was seen on 12/25/20. Subjective Chief Complaint/HPI No complaints this morning wants to go home. He worked better with physical therapy today and has been mobilizing better with better balance. PT is recommending 24 x 7 care at home which family is trying to figure out if they c an arrange. Objective Physical Examination General Exam: Positive: Alert, Cooperative, No Acute Distress, Other (Oriented only to name) Eye Exam: Positive: PERRLA, Conjunctiva & lids normal, EOMI; Negative: Sclera icteric ENT Exam: Positive: Atraumatic, Mucous membr. moist/pink, Pharynx Normal Neck Exam: Positive: Supple; Negative: JVD, thyromegaly Chest Exam: Positive: Clear to auscultation, Normal air movement Heart Exam: Positive: Rate Normal, Irregular Rhythm, Normal S1, Normal S2; Negative: Murmurs, Rubs Abdomen Exam: Positive: Normal bowel sounds, Soft; Negative: Tenderness Extremity Exam: Negative: Clubbing, Cyanosis, Edema Neuro Exam: Positive: Normal Speech, Normal Tone, Other (4/4 strength in all 4 extremities.) Assessment /Plan Assessment 85-year-old male with history of Alzheimer's dementia, GERD, kidney stones in 2008, history of spinal stenosis status post surgery in 1995, had a fall with left distal clavicular fracture on 12/16/2020. Today woke up at around 4 AM and went to check on patient who sleeps in a recliner downstairs and found the patient had slid out of the chair and was sitting on the floor with head resting on the chair cushion so called EMS to help pick him up. EMS on arrival place the patient on purchasing engineer and noted the patient to be in A. fib so brought him to the emergency room. In the ED patient was noted to be in sinus rhythm on initial arrival EKG however while on the monitor being evaluated it was noted that he was having paroxysmal episodes of A. fib. His heart rate is mostly controlled. also reported that since he broke his shoulder he has been using a walker and she has been needing to help him a lot with mobilization. Till 1 week ago he was independent in his ambulation and did not need any assistive device. Patient was evaluated by PT in the emergency room and felt that he was unsafe for discharge so patient is being admitted to the hospitalist service. Paroxysmal A. fib/a flutter Noted in mechanical cad designer, as symptomatic likely chronic going on for years. Now in sinus rhythm Continue on metoprolol twice a day Not a good candidate for anticoagulation with his history of falls and dementia Will give ASA Generalized deconditioning and difficulty in ambulation Patient had a recent clavicular fracture 1 week ago since then he has been using a walker recently in the past PT/OT recommends home with 24 x 7 care. Family is trying to see if they can arrange 24 x 7 care Alzheimer's dementia with sundowning as per Not on any meds Calm and cooperative and pleasant this morning. Protein calorie malnutrition BMI is 19.6, albumin of 2.6 Probably due to advancing dementia and age with decreasing oral intake Leukocytosis resolved This is reactive Procalcitonin not elevated Plan/VTE VTE Prophylaxis Ordered?: Yes VS, I&O, 24H, Fishbone Vital Signs/I&O Vital Signs Date Time Temp Pulse Resp B/P (MAP) Pulse Ox O2 Delivery O2 Flow Rate FiO2 12/25/20 14:00 97.6 63 18 131/81 (98) 99 12/25/20 05:59 Room Air I&O- Last 24 Hours up to 6 AM 12/25/20 06:00 Intake Total 1260 ml Output Total 400 ml Balance 860 ml Ashley Doshi MD Dec 25, 2020 17:36
[2020-12-25] MEDS: RAMELTEON 8 MG TAB (ROZEREM) PO SCH (20:31)
[2020-12-26 06:00] VITALS: BP 122/75
[2020-12-26] MEDS: ENOXAPARIN 40MG/0.4ML SYRINGE (J1650 PER 10MG) SC SCH (09:38)
[2020-12-26 09:39] VITALS: BP 124/73
[2020-12-26] MEDS: METOPROLOL TART 12.5 MG PER 1/2 TAB PO SCH (09:39)
[2020-12-26] MEDS: ASPIRIN 81 MG CHEW TABLET PO SCH (09:39)
[2020-12-26] MEDS ORDERED: METO1TAB87 PO (10:42)
[2020-12-26] MEDS ORDERED: ASPI81CH8 PO (10:42)
--- NOTE | 2020-12-26 10:47 | DS.PDOC ---
Discharge Summary General Date of Admission Dec 23, 2020 at 17:30 Date of Discharge 12/26/20 Discharge Summary PROCEDURES PERFORMED DURING STAY: [None]. DISCHARGE DIAGNOSES: Paroxysmal A. fib /a flutter Protein calorie malnutrition Alzheimer's dementia Generalized deconditioning and difficulty in ambulation Recent clavicular fracture on 12/16/2020 GERD History of kidney stones in 2008 History of spinal stenosis status post surgery in 1995 COMPLICATIONS/CHIEF COMPLAINT: Falls Frequently, Paroxysmal A-Fib. HOSPITAL COURSE: 85-year-old male with history of Alzheimer's dementia, GERD, kidney stones in 2008, history of spinal stenosis status post surgery in 1995, had a fall with left distal clavicular fracture on 12/16/2020. Today woke up at around 4 AM and went to check on patient who sleeps in a recliner downstairs and found the patient had slid out of the chair and was sitting on the floor with head resting on the chair cushion so called EMS to help pick him up. EMS on arrival place the patient on alarm security or surveillance monitor and noted the patient to be in A. fib so brought him to the emergency room. In the ED patient was noted to be in sinus rhythm on initial arrival EKG however while on the monitor being evaluated it was noted that he was having paroxysmal episodes of A. fib. His heart rate is mostly controlled. also reported that since he broke his shoulder he has been using a walker and she has been needing to help him a lot with mobilization. Till 1 week ago he was independent in his ambulation and did not need any assistive device. Patient was evaluated by PT in the emergency room and felt that he was unsafe for discharge so patient was admitted to the hospitalist service. Paroxysmal A. fib/a flutter Noted in panel monitor, as symptomatic likely chronic going on for years. Now in sinus rhythm Continue on metoprolol twice a day Not a good candidate for anticoagulation with his history of falls and dementia Will give ASA Generalized deconditioning and difficulty in ambulation Patient had a recent clavicular fracture 1 week ago since then he has been using a walker recently in the past PT/OT recommended home with 24 x 7 care. Family has now been able to arrange 24 x 7 care at home so patient is being discharged. Alzheimer's dementia with sundowning as per Not on any meds Calm and cooperative and pleasant. Protein calorie malnutrition BMI is 19.6, albumin of 2.6 Probably due to advancing dementia and age with decreasing oral intake Leukocytosis resolved This is reactive Procalcitonin not elevated DISCHARGE MEDICATIONS: Please see below. ALLERGIES: Please see below. PHYSICAL EXAMINATION ON DISCHARGE: VITAL SIGNS: Please see below. General Exam: Positive: Alert, Cooperative, No Acute Distress, Other (Oriented only to name) Eye Exam: Positive: PERRLA, Conjunctiva & lids normal, EOMI; Negative: Sclera icteric ENT Exam: Positive: Atraumatic, Mucous membr. moist/pink, Pharynx Normal Neck Exam: Positive: Supple; Negative: JVD, thyromegaly Chest Exam: Positive: Clear to auscultation, Normal air movement Heart Exam: Positive: Rate Normal, Irregular Rhythm, Normal S1, Normal S2; Negative: Murmurs, Rubs Abdomen Exam: Positive: Normal bowel sounds, Soft; Negative: Tenderness Extremity Exam: Negative: Clubbing, Cyanosis, Edema Neuro Exam: Positive: Normal Speech, Normal Tone, Other (4/4 strength in all 4 extremities.) LABORATORY DATA: Please see below. ACTIVITY: [As tolerated]. DIET: As tolerated DISCHARGE PLAN: Home with [facility] care DISCHARGE INSTRUCTIONS: Follow-up with PMD in 1 to 2 weeks DISCHARGE CONDITION: [Stable]. TIME SPENT ON DISCHARGE: 35 minutes. Vital Signs/I&Os Vital Signs Date Time Temp Pulse Resp B/P (MAP) Pulse Ox O2 Delivery O2 Flow Rate FiO2 12/26/20 09:39 60 124/73 12/26/20 06:00 98.0 16 93 Room Air I&O- Last 24 Hours up to 6 AM 12/26/20 06:00 Intake Total 360 ml Output Total 300 ml Balance 60 ml Discharge Medications Scheduled Aspirin (Children's Aspirin) 81 Mg Tab.chew, 81 MG PO DAILY Metoprolol Tartrate (Metoprolol Tartrate) 25 Mg Tablet, 12.5 MG PO BID Allergies Coded Allergies: No Known Allergies (Unverified , 01/04/19) Ashley Doshi MD Dec 26, 2020 10:47
== END 2020-12-26 15:14 | disposition home health service (06) | DRG 309 ==
LOC: M ED 07:57 → EDBD 07:57 → M ED INP 07:58 → UNDOADMIN 15:54 → M ED INP 15:54 → ENRESERV 16:55 → OBSVTOIN 17:30 → M PCU 18:12 → M MSPAV 12-24 11:19
PROVIDERS: ADMIT Internal Medicine Nephrology; ATTEND Internal Medicine Nephrology
DX: I48.0 Paroxysmal atrial fibrillation (principal); E46 Unspecified protein-calorie malnutrition; Z68.1 Body mass index [BMI] 19.9 or less, adult; G30.9 Alzheimer's disease, unspecified; F02.80 Dementia in other diseases classified elsewhere, unspecified severity, without behavioral disturbance, psychotic disturbance, mood disturbance, and anxiety; K21.9 Gastro-esophageal reflux disease without esophagitis; Z87.442 Personal history of urinary calculi; Z20.822 Contact with and (suspected) exposure to COVID-19; S42.032D Displaced fracture of lateral end of left clavicle, subsequent encounter for fracture with routine healing; W19.XXXD Unspecified fall, subsequent encounter; Y92.9 Unspecified place or not applicable; Y93.9 Activity, unspecified; Y99.9 Unspecified external cause status

== ENCOUNTER → 2021-04-06 | Outpatient (CLI) | payer MEDICARE, BC ==
[~2021-04-06] MED LIST changes: +ASPI81CH8 PO; +METO1TAB87 PO
[2021-04-06 12:35] LABS: HEMATOCRIT 39.2 % (42.0-52.0); HEMOGLOBIN 12.2 g/dl (13.5-17.5); MEAN CORPUSCULAR HEMOGLOBIN 29.3 pg (27.0-33.0); MEAN CORPUSCULAR HGB CONC 31.1 g/dl (32.0-36.5); PLATELET COUNT, AUTOMATED 340 10^3/uL (150-450); RED BLOOD COUNT 4.17 10^6/uL (4.30-6.10); WHITE BLOOD COUNT 8.3 10^3/uL (4.0-10.0)
[2021-04-06 13:35] LABS: ALT/SGPT 27 U/L (12-78); BILIRUBIN,TOTAL 0.4 MG/DL (0.2-1.0); BLOOD UREA NITROGEN 13 MG/DL (7-18); CALCIUM LEVEL 9.3 MG/DL (8.8-10.2); CARBON DIOXIDE LEVEL 32 MEQ/L (21-32); CHLORIDE LEVEL 109 MEQ/L (98-107); CREATININE FOR GFR 0.88 MG/DL (0.70-1.30); GLOMERULAR FILTRATION RATE > 60.0 (>35); GLUCOSE, FASTING 117 MG/DL (70-100); POTASSIUM SERUM 4.3 MEQ/L (3.5-5.1); PROSTATIC SPECIFIC AG MONITOR 6.84 NG/ML (< 4.00); SODIUM LEVEL 144 MEQ/L (136-145)
[2021-04-06 13:59] LABS: HEMOGLOBIN A1c 5.4 %
== END ==
LOC: M LAB 10:59
PROVIDERS: ATTEND Family Medicine
DX: E03.9 Hypothyroidism, unspecified (principal); I10 Essential (primary) hypertension; R53.83 Other fatigue; Z79.899 Other long term (current) drug therapy

== ENCOUNTER → 2021-09-14 | Outpatient (CLI) | payer MEDICARE, BC ==
[2021-09-14 13:10] LABS: HEMATOCRIT 39.3 % (42.0-52.0); HEMOGLOBIN 12.4 g/dl (13.5-17.5); MEAN CORPUSCULAR HEMOGLOBIN 29.1 pg (27.0-33.0); MEAN CORPUSCULAR HGB CONC 31.6 g/dl (32.0-36.5); MEAN CORPUSCULAR VOLUME 92.3 fl (80.0-96.0); PLATELET COUNT, AUTOMATED 340 10^3/uL (150-450); RED BLOOD COUNT 4.26 10^6/uL (4.30-6.10); WHITE BLOOD COUNT 7.6 10^3/uL (4.0-10.0)
[2021-09-14 13:40] LABS: ALT/SGPT 10 U/L (12-78); BILIRUBIN,TOTAL 0.7 MG/DL (0.2-1.0); BLOOD UREA NITROGEN 11 MG/DL (7-18); CALCIUM LEVEL 9.4 MG/DL (8.8-10.2); CARBON DIOXIDE LEVEL 31 MEQ/L (21-32); CHLORIDE LEVEL 108 MEQ/L (98-107); CHOLESTEROL LEVEL 188 MG/DL (<200); CHOLESTEROL RISK RATIO 4.476 (<5); CREATININE FOR GFR 0.98 MG/DL (0.70-1.30); GLOMERULAR FILTRATION RATE > 60.0 (>35); GLUCOSE, FASTING 96 MG/DL (70-100); HDL CHOLESTEROL 42 MG/DL (>40); LDL CHOLESTEROL 123 MG/DL (<100); NON-HDL-C 146 MG/DL; POTASSIUM SERUM 4.7 MEQ/L (3.5-5.1); SODIUM LEVEL 140 MEQ/L (136-145); TOTAL PROTEIN 7.2 GM/DL (6.4-8.2); TRIGLYCERIDES LEVEL 116 MG/DL (<150)
[2021-09-14 13:41] LABS: ALBUMIN 3.2 GM/DL (3.2-5.2); PROSTATIC SPECIFIC AG MONITOR 6.78 NG/ML (< 4.00)
== END ==
LOC: M RAD 12:11
PROVIDERS: ATTEND Family Medicine
DX: I10 Essential (primary) hypertension (principal); R97.20 Elevated prostate specific antigen [PSA]

== ENCOUNTER 2021-09-21 09:55 | Inpatient (IN) | payer MEDICARE, BC ==
[~2021-09-21] VITALS: Ht 175.3 cm; Wt 60.8 kg
[2021-09-21] MEDS ORDERED: POTA1TAB21 PO (10:22)
[2021-09-21] MEDS ORDERED: TORS100T PO (10:22)
[2021-09-21 13:15] LABS: BASO # 0.1 10^3/uL (0.0-0.2); BASO % 1.2 % (0.0-1.0); EOS # 0.4 10^3/uL (0.0-0.5); EOS % 5.8 % (0.0-3.0); HEMATOCRIT 42.2 % (42.0-52.0); HEMOGLOBIN 13.5 g/dl (13.5-17.5); LYMPH # 1.6 10^3/uL (1.5-5.0); LYMPH % 22.3 % (24.0-44.0); MEAN CORPUSCULAR HEMOGLOBIN 28.7 pg (27.0-33.0); MEAN CORPUSCULAR VOLUME 89.6 fl (80.0-96.0); MONO # 0.6 10^3/uL (0.0-0.8); MONO % 7.8 % (2.0-8.0); NEUTROPHILS # 4.5 10^3/uL (1.5-8.5); NEUTROPHILS % 62.8 % (36.0-66.0); PLATELET COUNT, AUTOMATED 358 10^3/uL (150-450); RED BLOOD COUNT 4.71 10^6/uL (4.30-6.10); WHITE BLOOD COUNT 7.2 10^3/uL (4.0-10.0)
[2021-09-21 13:41] LABS: ALBUMIN 3.6 GM/DL (3.2-5.2); ALT/SGPT 12 U/L (12-78); BILIRUBIN,DIRECT 0.2 MG/DL (0.0-0.2); BILIRUBIN,TOTAL 0.8 MG/DL (0.2-1.0); BLOOD UREA NITROGEN 20 MG/DL (7-18); CALCIUM LEVEL 10.4 MG/DL (8.8-10.2); CARBON DIOXIDE LEVEL 30 MEQ/L (21-32); CHLORIDE LEVEL 104 MEQ/L (98-107); CREATININE FOR GFR 1.15 MG/DL (0.70-1.30); GLOMERULAR FILTRATION RATE > 60.0 (>35); GLUCOSE, FASTING 105 MG/DL (70-100); POTASSIUM SERUM 4.2 MEQ/L (3.5-5.1); SODIUM LEVEL 141 MEQ/L (136-145); TOTAL PROTEIN 8.4 GM/DL (6.4-8.2)
[2021-09-21 13:46] LABS: RSV AMPLIFICATION NEGATIVE (NEGATIVE)
[2021-09-21] MEDS ORDERED: TORSEMIDE 20 MG TAB PO ONE (15:05)
[2021-09-21] MEDS ORDERED: OLANZapine ORAL DISINTEGRATING TAB 5MG PO ONE (15:05)
[2021-09-21] MEDS ORDERED: ASPI81TA26 PO (15:09)
[2021-09-21] MEDS ORDERED: METO1TAB87 PO (15:09)
[2021-09-21] MEDS ORDERED: HOME MED LIST COMPLETE! XX SCH (15:10)
[2021-09-21] MEDS ORDERED: OLANZapine INTRAMUSCULAR 10MG VIAL IM PRN (16:40)
[2021-09-21] MEDS ORDERED: OLANZapine ORAL DISINTEGRATING TAB 5MG PO PRN (20:00)
[2021-09-21] MEDS: POTASSIUM CHLORIDE 10MEQ SR TABLET PO SCH (21:33)
[2021-09-21] MEDS: QUEtiapine FUMARATE 25 MG TAB PO SCH (21:34)
[2021-09-21] MEDS: METOPROLOL TART 12.5 MG PER 1/2 TAB PO SCH (21:34)
[2021-09-21 22:00] VITALS: BP 136/80
[2021-09-22] MEDS ORDERED: TORSEMIDE (DEMADEX) 50 MG PER 1/2 TAB PO SCH (09:00)
[2021-09-22] MEDS: POTASSIUM CHLORIDE 10MEQ SR TABLET PO SCH ×3 (09:00→21:00)
[2021-09-22] MEDS: ASPIRIN 81MG ENTERIC TABLET PO SCH (09:18)
[2021-09-22] MEDS: METOPROLOL TART 12.5 MG PER 1/2 TAB PO SCH ×2 (09:22→21:00)
[2021-09-22] MEDS: ENOXAPARIN 40MG/0.4ML SYRINGE (J1650 PER 10MG) SC SCH (13:35)
[2021-09-22] MEDS: QUEtiapine FUMARATE 25 MG TAB PO SCH (21:00)
[2021-09-23 05:00] VITALS: BP 123/80
[2021-09-23 07:26] LABS: HEMATOCRIT 39.4 % (42.0-52.0); HEMOGLOBIN 12.8 g/dl (13.5-17.5); MEAN CORPUSCULAR HEMOGLOBIN 29.3 pg (27.0-33.0); MEAN CORPUSCULAR HGB CONC 32.5 g/dl (32.0-36.5); MEAN CORPUSCULAR VOLUME 90.2 fl (80.0-96.0); PLATELET COUNT, AUTOMATED 373 10^3/uL (150-450); RED BLOOD COUNT 4.37 10^6/uL (4.30-6.10); WHITE BLOOD COUNT 8.4 10^3/uL (4.0-10.0)
[2021-09-23 07:58] LABS: CALCIUM LEVEL 10.2 MG/DL (8.8-10.2); CREATININE FOR GFR 1.76 MG/DL (0.70-1.30); GLOMERULAR FILTRATION RATE 39.4 (>35); MAGNESIUM LEVEL 2.4 MG/DL (1.8-2.4); POTASSIUM SERUM 3.7 MEQ/L (3.5-5.1)
[2021-09-23] MEDS: ASPIRIN 81MG ENTERIC TABLET PO SCH (08:27)
[2021-09-23] MEDS: METOPROLOL TART 12.5 MG PER 1/2 TAB PO SCH ×2 (08:30→20:56)
[2021-09-23] MEDS: ENOXAPARIN 40MG/0.4ML SYRINGE (J1650 PER 10MG) SC SCH (08:30)
[2021-09-23] MEDS: QUEtiapine FUMARATE 25 MG TAB PO SCH (20:45)
[2021-09-23 22:30] VITALS: BP 115/71
[2021-09-24] MEDS: ENOXAPARIN 40MG/0.4ML SYRINGE (J1650 PER 10MG) SC SCH (11:31)
[2021-09-24] MEDS: METOPROLOL TART 12.5 MG PER 1/2 TAB PO SCH ×2 (11:31→21:18)
[2021-09-24] MEDS: POTASSIUM CHLORIDE 10MEQ SR TABLET PO SCH ×2 (11:31→21:21)
[2021-09-24] MEDS: ASPIRIN 81MG ENTERIC TABLET PO SCH (11:31)
[2021-09-24 17:51] LABS: CALCIUM LEVEL 10.2 MG/DL (8.8-10.2); CREATININE FOR GFR 1.4 MG/DL (0.70-1.30); GLOMERULAR FILTRATION RATE 51.3 (>35); POTASSIUM SERUM 3.8 MEQ/L (3.5-5.1)
[2021-09-24] MEDS: QUEtiapine FUMARATE 25 MG TAB PO SCH (21:18)
[2021-09-24 21:20] VITALS: BP 119/67
[2021-09-25 06:00] VITALS: BP 112/55
[2021-09-25] MEDS: ENOXAPARIN 40MG/0.4ML SYRINGE (J1650 PER 10MG) SC SCH (09:00)
[2021-09-25] MEDS: METOPROLOL TART 12.5 MG PER 1/2 TAB PO SCH ×3 (10:41→22:15)
[2021-09-25] MEDS: ASPIRIN 81MG ENTERIC TABLET PO SCH (10:41)
[2021-09-25] MEDS: POTASSIUM CHLORIDE 10MEQ SR TABLET PO SCH ×3 (10:42→22:16)
[2021-09-25] MEDS: QUEtiapine FUMARATE 25 MG TAB PO SCH ×2 (21:00→22:15)
[2021-09-26] MEDS: POTASSIUM CHLORIDE 10MEQ SR TABLET PO SCH ×2 (07:41→20:15)
[2021-09-26] MEDS: ASPIRIN 81MG ENTERIC TABLET PO SCH (07:41)
[2021-09-26] MEDS: METOPROLOL TART 12.5 MG PER 1/2 TAB PO SCH ×2 (07:42→20:15)
[2021-09-26] MEDS: ENOXAPARIN 40MG/0.4ML SYRINGE (J1650 PER 10MG) SC SCH (07:43)
[2021-09-26 08:07] LABS: HEMATOCRIT 41.5 % (42.0-52.0); HEMOGLOBIN 13.3 g/dl (13.5-17.5); MEAN CORPUSCULAR HEMOGLOBIN 28.7 pg (27.0-33.0); MEAN CORPUSCULAR VOLUME 89.6 fl (80.0-96.0); PLATELET COUNT, AUTOMATED 347 10^3/uL (150-450); RED BLOOD COUNT 4.63 10^6/uL (4.30-6.10); WHITE BLOOD COUNT 8.5 10^3/uL (4.0-10.0)
[2021-09-26 08:31] LABS: CALCIUM LEVEL 10.4 MG/DL (8.8-10.2); CREATININE FOR GFR 1.29 MG/DL (0.70-1.30); GLOMERULAR FILTRATION RATE 56.4 (>35); MAGNESIUM LEVEL 2.5 MG/DL (1.8-2.4); POTASSIUM SERUM 4.2 MEQ/L (3.5-5.1)
[2021-09-26] MEDS: QUEtiapine FUMARATE 25 MG TAB PO SCH (20:15)
[2021-09-27 06:46] VITALS: BP 112/74
[2021-09-27] MEDS: ENOXAPARIN 40MG/0.4ML SYRINGE (J1650 PER 10MG) SC SCH (08:46)
[2021-09-27] MEDS ORDERED: ACETAMINOPHEN TAB 650MG DOSE (2X325MG) PO PRN (09:00)
[2021-09-27] MEDS: ASPIRIN 81MG ENTERIC TABLET PO SCH (09:14)
[2021-09-27] MEDS: POTASSIUM CHLORIDE 10MEQ SR TABLET PO SCH ×2 (09:14→20:20)
[2021-09-27] MEDS: METOPROLOL TART 12.5 MG PER 1/2 TAB PO SCH ×2 (09:14→20:20)
[2021-09-27] MEDS: QUEtiapine FUMARATE 25 MG TAB PO SCH (20:20)
[2021-09-28] MEDS: ENOXAPARIN 40MG/0.4ML SYRINGE (J1650 PER 10MG) SC SCH ×2 (08:43→08:51)
[2021-09-28] MEDS: ASPIRIN 81MG ENTERIC TABLET PO SCH (08:43)
[2021-09-28] MEDS: POTASSIUM CHLORIDE 10MEQ SR TABLET PO SCH ×3 (08:44→21:28)
[2021-09-28] MEDS: METOPROLOL TART 12.5 MG PER 1/2 TAB PO SCH ×3 (08:44→21:32)
[2021-09-28] MEDS ORDERED: TORSEMIDE 10 MG TABLET PO SCH (09:00)
[2021-09-28] MEDS: QUEtiapine FUMARATE 25 MG TAB PO SCH ×2 (21:00→21:28)
[2021-09-29 06:00] VITALS: BP 138/84
[2021-09-29 06:46] LABS: HEMATOCRIT 42.9 % (42.0-52.0); HEMOGLOBIN 13.7 g/dl (13.5-17.5); MEAN CORPUSCULAR HEMOGLOBIN 29.3 pg (27.0-33.0); MEAN CORPUSCULAR HGB CONC 31.9 g/dl (32.0-36.5); MEAN CORPUSCULAR VOLUME 91.7 fl (80.0-96.0); PLATELET COUNT, AUTOMATED 366 10^3/uL (150-450); RED BLOOD COUNT 4.68 10^6/uL (4.30-6.10); WHITE BLOOD COUNT 8.5 10^3/uL (4.0-10.0)
[2021-09-29 07:03] LABS: CALCIUM LEVEL 10.7 MG/DL (8.8-10.2); CREATININE FOR GFR 1.44 MG/DL (0.70-1.30); GLOMERULAR FILTRATION RATE 49.6 (>35); MAGNESIUM LEVEL 2.5 MG/DL (1.8-2.4); POTASSIUM SERUM 4.2 MEQ/L (3.5-5.1)
[2021-09-29] MEDS: ENOXAPARIN 40MG/0.4ML SYRINGE (J1650 PER 10MG) SC SCH ×2 (09:00→10:50)
[2021-09-29] MEDS: METOPROLOL TART 12.5 MG PER 1/2 TAB PO SCH ×2 (10:43→20:55)
[2021-09-29] MEDS: POTASSIUM CHLORIDE 10MEQ SR TABLET PO SCH ×2 (10:43→20:55)
[2021-09-29] MEDS: ASPIRIN 81MG ENTERIC TABLET PO SCH (10:43)
[2021-09-29] MEDS: QUEtiapine FUMARATE 25 MG TAB PO SCH (20:55)
[2021-09-30 08:16] LABS: BASO # 0.1 10^3/uL (0.0-0.2); BASO % 1.3 % (0.0-1.0); EOS # 0.5 10^3/uL (0.0-0.5); EOS % 6.8 % (0.0-3.0); HEMATOCRIT 39.8 % (42.0-52.0); HEMOGLOBIN 12.4 g/dl (13.5-17.5); LYMPH # 1.3 10^3/uL (1.5-5.0); LYMPH % 18.7 % (24.0-44.0); MEAN CORPUSCULAR HEMOGLOBIN 28.2 pg (27.0-33.0); MEAN CORPUSCULAR HGB CONC 31.2 g/dl (32.0-36.5); MEAN CORPUSCULAR VOLUME 90.7 fl (80.0-96.0); MONO # 0.6 10^3/uL (0.0-0.8); MONO % 8.1 % (2.0-8.0); NEUTROPHILS # 4.5 10^3/uL (1.5-8.5); NEUTROPHILS % 64.8 % (36.0-66.0); PLATELET COUNT, AUTOMATED 320 10^3/uL (150-450); RED BLOOD COUNT 4.39 10^6/uL (4.30-6.10); WHITE BLOOD COUNT 6.9 10^3/uL (4.0-10.0)
[2021-09-30 08:40] LABS: BLOOD UREA NITROGEN 23 MG/DL (7-18); CALCIUM LEVEL 10.3 MG/DL (8.8-10.2); CARBON DIOXIDE LEVEL 29 MEQ/L (21-32); CHLORIDE LEVEL 109 MEQ/L (98-107); CREATININE FOR GFR 1.18 MG/DL (0.70-1.30); GLOMERULAR FILTRATION RATE > 60.0 (>35); GLUCOSE, FASTING 91 MG/DL (70-100); MAGNESIUM LEVEL 2.4 MG/DL (1.8-2.4); POTASSIUM SERUM 4.3 MEQ/L (3.5-5.1); SODIUM LEVEL 143 MEQ/L (136-145)
[2021-09-30 09:14] VITALS: BP 138/90
[2021-09-30] MEDS: ENOXAPARIN 40MG/0.4ML SYRINGE (J1650 PER 10MG) SC SCH (09:14)
[2021-09-30] MEDS: METOPROLOL TART 12.5 MG PER 1/2 TAB PO SCH (09:14)
[2021-09-30] MEDS: ASPIRIN 81MG ENTERIC TABLET PO SCH (09:14)
[2021-09-30] MEDS: POTASSIUM CHLORIDE 10MEQ SR TABLET PO SCH (09:14)
[2021-09-30] MEDS ORDERED: POTA-136 PO (09:16)
[2021-09-30] MEDS ORDERED: QUET1TAB17 PO (09:16)
[2021-09-30] MEDS ORDERED: TORS20TA2 PO (09:16)
== END 2021-09-30 11:19 | DRG 884 ==
LOC: M ED 09:55 → M ED INP 15:02 → M MSPAV 21:11
PROVIDERS: ADMIT Internal Medicine Nephrology; ATTEND Internal Medicine
DX: F03.91 Unspecified dementia, unspecified severity, with behavioral disturbance (principal); E46 Unspecified protein-calorie malnutrition; I48.0 Paroxysmal atrial fibrillation; K21.9 Gastro-esophageal reflux disease without esophagitis; Z90.49 Acquired absence of other specified parts of digestive tract; Z98.49 Cataract extraction status, unspecified eye; Z79.82 Long term (current) use of aspirin; Z79.899 Other long term (current) drug therapy; R60.9 Edema, unspecified

== ENCOUNTER → 2022-06-18 | Outpatient (REF) | payer MEDICARE, BC ==
[~2022-06-18] MED LIST changes: +ASPI81TA26 PO; +POTA-136 PO; +POTA1TAB21 PO; +QUET1TAB17 PO; +TORS100T PO; +TORS20TA2 PO
== END ==
LOC: SKLAB8 13:43
PROVIDERS: ATTEND Internal Medicine
DX: M85.852 Other specified disorders of bone density and structure, left thigh (principal); Z91.81 History of falling

== ENCOUNTER → 2022-06-26 | Outpatient (REF) ==
[~2022-06-26] MED LIST changes: +ACET1TAB55 PO; +ENSU1LIQ36 PO; +METO1TAB32 PO; +POTA-149 PO
[2022-06-26 12:19] LABS: HEMATOCRIT 43.6 % (42.0-52.0); HEMOGLOBIN 13.7 g/dl (13.5-17.5); MEAN CORPUSCULAR HEMOGLOBIN 28.3 pg (27.0-33.0); MEAN CORPUSCULAR HGB CONC 31.4 g/dl (32.0-36.5); MEAN CORPUSCULAR VOLUME 90.1 fl (80.0-96.0); PLATELET COUNT, AUTOMATED 433 10^3/uL (150-450); RED BLOOD COUNT 4.84 10^6/uL (4.30-6.10); WHITE BLOOD COUNT 18.7 10^3/uL (4.0-10.0)
[2022-06-26 12:52] LABS: BLOOD UREA NITROGEN 28 MG/DL (9-23); CALCIUM LEVEL 10.4 MG/DL (8.3-10.6); CARBON DIOXIDE LEVEL 31 MMOL/L (20-31); CHLORIDE LEVEL 100 MMOL/L (98-107); CREATININE FOR GFR 1.13 MG/DL (0.70-1.30); GLOMERULAR FILTRATION RATE > 60.0 (>35); GLUCOSE, FASTING 147 MG/DL (74-106); POTASSIUM SERUM 4.6 MMOL/L (3.5-5.1); SODIUM LEVEL 139 MMOL/L (136-145)
== END ==
LOC: SKLAB8 11:33
PROVIDERS: ATTEND Neuromusculoskeletal Medicine & OMM
DX: E86.0 Dehydration (principal)

== ENCOUNTER 2022-06-27 08:37 | Inpatient (IN) | payer MEDICARE, BC ==
[~2022-06-27] VITALS: Ht 175.3 cm; Wt 59.5 kg
[~2022-06-27 08:37] MED LIST changes: -ACET1TAB55 PO; -ASPI81TAEC PO; -ENSU1LIQ36 PO; -MELA10TA PO; +MELATONIN CR10 MG PO; -METO1TAB32 PO; -POTA-149 PO
[2022-06-27 09:08] LABS: HEMATOCRIT 43.5 % (42.0-52.0); HEMOGLOBIN 13.7 g/dl (13.5-17.5); MEAN CORPUSCULAR HEMOGLOBIN 28.2 pg (27.0-33.0); MEAN CORPUSCULAR HGB CONC 31.5 g/dl (32.0-36.5); MEAN CORPUSCULAR VOLUME 89.5 fl (80.0-96.0); PLATELET COUNT, AUTOMATED 373 10^3/uL (150-450); RED BLOOD COUNT 4.86 10^6/uL (4.30-6.10); WHITE BLOOD COUNT 12.4 10^3/uL (4.0-10.0)
[2022-06-27 09:12] LABS: INR 0.93; PROTHROMBIN TIME 12.7 SECONDS (12.5-14.5)
[2022-06-27 09:42] LABS: RSV AMPLIFICATION NEGATIVE (NEGATIVE)
[2022-06-27 09:48] LABS: ALBUMIN 3.4 G/DL (3.2-5.2); ALKALINE PHOSPHATASE 109 U/L (46-116); ALT/SGPT 14 U/L (7.0-40); AST/SGOT 23 U/L (<34); BILIRUBIN,TOTAL 1.2 MG/DL (0.3-1.2); BLOOD UREA NITROGEN 28 MG/DL (9-23); CALCIUM LEVEL 10.6 MG/DL (8.3-10.6); CARBON DIOXIDE LEVEL 33 MMOL/L (20-31); CHLORIDE LEVEL 102 MMOL/L (98-107); CREATININE FOR GFR 1.16 MG/DL (0.70-1.30); GLOMERULAR FILTRATION RATE > 60.0 (>35); GLUCOSE, FASTING 111 MG/DL (74-106); POTASSIUM SERUM 4.8 MMOL/L (3.5-5.1); SODIUM LEVEL 143 MMOL/L (136-145)
[2022-06-27] MEDS ORDERED: QUET1TAB17 PO (10:18)
[2022-06-27] MEDS ORDERED: POTA-149 PO (10:18)
[2022-06-27] MEDS ORDERED: METO1TAB32 PO (10:18)
[2022-06-27] MEDS ORDERED: TORS20TA2 PO (10:18)
[2022-06-27] MEDS ORDERED: ENSU1LIQ36 PO (10:22)
[2022-06-27] MEDS ORDERED: ACET1TAB55 PO (10:22)
[2022-06-27] MEDS ORDERED: HOME MED LIST COMPLETE! XX SCH (10:25)
[2022-06-27] MEDS ORDERED: NS 1,000 ML IV SCH (12:05)
[2022-06-27] MEDS ORDERED: MORPHINE 2 MG/ML 1ML VIAL IV PRN ×2 (12:05)
[2022-06-27] MEDS ORDERED: fentaNYL 100 MCG/2 ML INJECTION IV PRN ×2 (12:35→17:00)
[2022-06-27] MEDS ORDERED: PROMETHAZINE 25MG/ML 1ML VIAL IV PRN ×2 (12:35→17:00)
[2022-06-27] MEDS ORDERED: oxyCODONE 5MG TAB PO PRN ×2 (12:35→17:00)
[2022-06-27] MEDS ORDERED: ONDANSETRON 4MG 2ML VIAL IV PRN ×2 (12:35→17:00)
[2022-06-27] MEDS ORDERED: MEPERIDINE 25 MG/ML 1ML VIAL IV PRN ×2 (12:35→17:00)
[2022-06-27] MEDS ORDERED: TRANEXAMIC ACID 100 MG/ML 10ML VIAL As Ordered ONE ×2 (13:09→13:10)
[2022-06-27] MEDS ORDERED: VANCOMYCIN 500MG/10ML VIAL As Ordered ONE (13:10)
[2022-06-27] MEDS ORDERED: BUPIVACAINE/EPIN 0.5% 30ML VIAL As Ordered ONE (13:10)
[2022-06-27] MEDS ORDERED: ceFAZolin 2 GM/D5W 50 ML IV BAG As Ordered ONE (13:11)
[2022-06-27] MEDS ORDERED: ONDANSETRON 4MG 2ML VIAL As Ordered ONE (13:47)
[2022-06-27] MEDS ORDERED: propofoL 200 MG/20 ML VIAL As Ordered ONE (13:47)
[2022-06-27] MEDS ORDERED: ROCURONIUM BROMIDE 50MG/5ML VIAL As Ordered ONE (13:47)
[2022-06-27] MEDS ORDERED: LIDOCAINE 2% 100MG/5ML SDV (FOR ANES.) As Ordered ONE (13:47)
[2022-06-27] MEDS ORDERED: fentaNYL 100 MCG/2 ML INJECTION As Ordered ONE (13:48)
[2022-06-27] MEDS: PANTOPRAZOLE 40MG VIAL IV SCH (14:00)
[2022-06-27] MEDS ORDERED: ETOMIDATE INJ 20MG/10ML VIAL As Ordered ONE (14:13)
[2022-06-27] MEDS ORDERED: ePHEDrine SULFATE 25 MG/5 ML(5MG/ML) SYRINGE As Ordered ONE (15:03)
[2022-06-27] MEDS ORDERED: PHENYLephrine 500MCG 5ML (100MCG/ML) SYRINGE As Ordered ONE ×2 (15:03→16:39)
[2022-06-27] MEDS ORDERED: SUGAMMADEX SODIUM 500 MG/5 ML VIAL (BRIDION) As Ordered ONE (15:32)
[2022-06-27] MEDS ORDERED: ACETAMINOPHEN 1000MG 100ML IV BAG As Ordered ONE (15:47)
[2022-06-27] MEDS ORDERED: PHENYLEPHRINE 10MG/ML 1ML VIAL As Ordered ONE (16:04)
[2022-06-27] MEDS ORDERED: SENNA 8.6 MG TAB (SENOKOT) PO PRN (17:10)
[2022-06-27] MEDS ORDERED: LR 1,000 ML IV SCH ×2 (17:10→20:00)
[2022-06-27] MEDS: ACETAMINOPHEN TAB 650MG DOSE (2X325MG) PO SCH ×2 (18:00→23:42)
[2022-06-27] MEDS ORDERED: NS 1,000 ML IV ONE (18:20)
[2022-06-27] MEDS ORDERED: LACTATED RINGER'S 1000 ML IV ONE (20:00)
[2022-06-27 20:15] VITALS: BP 99/54
[2022-06-27 20:45] VITALS: BP 90/58
[2022-06-27] MEDS: ASPIRIN 81MG ENTERIC TABLET PO SCH (21:00)
[2022-06-27] MEDS: DOCUSATE SODIUM 100MG CAPSULE PO SCH (21:00)
[2022-06-27] MEDS ORDERED: diphenhydrAMINE 50MG/ML VIAL IV ONE (21:00)
[2022-06-27 21:45] VITALS: BP 98/54
[2022-06-27 22:45] VITALS: BP 92/50
[2022-06-27] MEDS: ceFAZolin SOD 2 GM in IV 1 EA IV SCH (23:40)
[2022-06-27 23:45] VITALS: BP 118/53
[2022-06-28] VITALS (7 sets, daily range): BP systolic 97–152; BP diastolic 53–101
[2022-06-28] MEDS: ACETAMINOPHEN TAB 650MG DOSE (2X325MG) PO SCH ×4 (06:00→17:50)
[2022-06-28] MEDS: ceFAZolin SOD 2 GM in IV 1 EA IV SCH (06:42)
[2022-06-28 07:26] LABS: HEMATOCRIT 34.9 % (42.0-52.0); MEAN CORPUSCULAR HEMOGLOBIN 28.3 pg (27.0-33.0); MEAN CORPUSCULAR HGB CONC 30.9 g/dl (32.0-36.5); MEAN CORPUSCULAR VOLUME 91.4 fl (80.0-96.0); PLATELET COUNT, AUTOMATED 287 10^3/uL (150-450); RED BLOOD COUNT 3.82 10^6/uL (4.30-6.10); WHITE BLOOD COUNT 12.8 10^3/uL (4.0-10.0)
[2022-06-28 07:34] LABS: HEMOGLOBIN 10.8 g/dl (13.5-17.5)
[2022-06-28 07:57] LABS: ALBUMIN 2.5 G/DL (3.2-5.2); ALKALINE PHOSPHATASE 77 U/L (46-116); ALT/SGPT 15 U/L (7.0-40); AST/SGOT 49 U/L (<34); BILIRUBIN,TOTAL 0.5 MG/DL (0.3-1.2); BLOOD UREA NITROGEN 24 MG/DL (9-23); CALCIUM LEVEL 9.1 MG/DL (8.3-10.6); CARBON DIOXIDE LEVEL 30 MMOL/L (20-31); CHLORIDE LEVEL 109 MMOL/L (98-107); GLOMERULAR FILTRATION RATE > 60.0 (>35); GLUCOSE, FASTING 99 MG/DL (74-106); POTASSIUM SERUM 5.4 MMOL/L (3.5-5.1); SODIUM LEVEL 146 MMOL/L (136-145); TOTAL PROTEIN 6.1 G/DL (5.7-8.2)
[2022-06-28] MEDS ORDERED: ASPIRIN 81MG ENTERIC TABLET PO SCH (09:00)
[2022-06-28] MEDS ORDERED: POTASSIUM CHLORIDE 10MEQ SR TABLET PO SCH (09:00)
[2022-06-28] MEDS: DOCUSATE SODIUM 100MG CAPSULE PO SCH ×2 (09:00→20:13)
[2022-06-28] MEDS: ASPIRIN 81MG ENTERIC TABLET PO SCH ×2 (09:50→20:13)
[2022-06-28] MEDS: ASCORBIC ACID 500 MG TAB PO SCH (09:50)
[2022-06-28] MEDS: D5W/0.45% SODIUM CHLORIDE 1,000 ML IV SCH ×2 (09:51→21:57)
[2022-06-28] MEDS: FERROUS SULFATE 325MG TAB PO SCH (09:52)
[2022-06-28] MEDS: PANTOPRAZOLE 40MG VIAL IV SCH (14:09)
[2022-06-28] MEDS: MORPHINE 2 MG/ML 1ML VIAL IV PRN (17:43)
[2022-06-28] MEDS ORDERED: MORPHINE 2 MG/ML 1ML VIAL IV PRN (20:05)
[2022-06-28] MEDS: QUEtiapine FUMARATE 25 MG TAB PO SCH (20:13)
[2022-06-29] VITALS: BP 114/74
[2022-06-29] MEDS: MORPHINE 2 MG/ML 1ML VIAL IV PRN (00:32)
[2022-06-29 04:00] VITALS: BP 125/62
[2022-06-29] MEDS: ACETAMINOPHEN TAB 650MG DOSE (2X325MG) PO SCH ×4 (05:31→19:57)
[2022-06-29 05:43] LABS: HEMATOCRIT 31.8 % (42.0-52.0); HEMOGLOBIN 9.9 g/dl (13.5-17.5); MEAN CORPUSCULAR HEMOGLOBIN 28.7 pg (27.0-33.0); MEAN CORPUSCULAR HGB CONC 31.1 g/dl (32.0-36.5); MEAN CORPUSCULAR VOLUME 92.2 fl (80.0-96.0); PLATELET COUNT, AUTOMATED 271 10^3/uL (150-450); RED BLOOD COUNT 3.45 10^6/uL (4.30-6.10); WHITE BLOOD COUNT 10.8 10^3/uL (4.0-10.0)
[2022-06-29 06:12] LABS: ALBUMIN 2.3 G/DL (3.2-5.2); ALKALINE PHOSPHATASE 74 U/L (46-116); ALT/SGPT 11 U/L (7.0-40); AST/SGOT 61 U/L (<34); BILIRUBIN,TOTAL 0.5 MG/DL (0.3-1.2); BLOOD UREA NITROGEN 16 MG/DL (9-23); CALCIUM LEVEL 8.6 MG/DL (8.3-10.6); CARBON DIOXIDE LEVEL 31 MMOL/L (20-31); CHLORIDE LEVEL 108 MMOL/L (98-107); GLOMERULAR FILTRATION RATE > 60.0 (>35); GLUCOSE, FASTING 98 MG/DL (74-106); POTASSIUM SERUM 4.5 MMOL/L (3.5-5.1); SODIUM LEVEL 142 MMOL/L (136-145); TOTAL PROTEIN 5.8 G/DL (5.7-8.2)
[2022-06-29 07:42] VITALS: BP 112/60
[2022-06-29] MEDS: DOCUSATE SODIUM 100MG CAPSULE PO SCH ×2 (09:00→19:57)
[2022-06-29] MEDS: ASPIRIN 81MG ENTERIC TABLET PO SCH ×2 (09:00→19:57)
[2022-06-29] MEDS: ASCORBIC ACID 500 MG TAB PO SCH (09:00)
[2022-06-29] MEDS: FERROUS SULFATE 325MG TAB PO SCH (09:00)
[2022-06-29] MEDS ORDERED: OLANZapine INTRAMUSCULAR 10MG VIAL IM ONE (10:35)
[2022-06-29 12:09] VITALS: BP 119/58
[2022-06-29] MEDS ORDERED: ASPI81TAEC PO (12:22)
[2022-06-29] MEDS ORDERED: METO1TAB32 PO (12:22)
[2022-06-29] MEDS ORDERED: TORS20TA2 PO (12:31)
[2022-06-29] MEDS: PANTOPRAZOLE 40MG VIAL IV SCH (14:00)
[2022-06-29] MEDS: QUEtiapine FUMARATE 25 MG TAB PO SCH (19:56)
[2022-06-29 20:00] VITALS: BP 112/56
[2022-06-29 20:50] VITALS: BP 92/50
[2022-06-30] MEDS: ACETAMINOPHEN TAB 650MG DOSE (2X325MG) PO SCH (05:50)
[2022-06-30] MEDS: FERROUS SULFATE 325MG TAB PO SCH (09:00)
[2022-06-30] MEDS: DOCUSATE SODIUM 100MG CAPSULE PO SCH (09:00)
[2022-06-30] MEDS: ASPIRIN 81MG ENTERIC TABLET PO SCH (09:00)
[2022-06-30] MEDS: ASCORBIC ACID 500 MG TAB PO SCH (09:00)
== END 2022-06-30 10:15 | DRG 522 ==
LOC: M ED 08:37 → M ED INP 12:04 → ENRESERV 12:29 → CANRESERV 12:29 → ENRESERV 19:18 → M PCU 19:46 → M MS5PR 06-29 20:45
PROVIDERS: ADMIT Internal Medicine; ATTEND Family Medicine
PROC: 0SRS0JZ Replacement of Left Hip Joint, Femoral Surface with Synthetic Substitute, Open Approach (ICD-10-PCS; principal; 2022-06-27 14:45)
DX: S72.002A Fracture of unspecified part of neck of left femur, initial encounter for closed fracture (principal); I48.92 Unspecified atrial flutter; E87.0 Hyperosmolality and hypernatremia; I48.0 Paroxysmal atrial fibrillation; G30.9 Alzheimer's disease, unspecified; H66.91 Otitis media, unspecified, right ear; E87.8 Other disorders of electrolyte and fluid balance, not elsewhere classified; K21.9 Gastro-esophageal reflux disease without esophagitis; E87.5 Hyperkalemia; R26.2 Difficulty in walking, not elsewhere classified; F02.80 Dementia in other diseases classified elsewhere, unspecified severity, without behavioral disturbance, psychotic disturbance, mood disturbance, and anxiety; I95.89 Other hypotension; L98.9 Disorder of the skin and subcutaneous tissue, unspecified; Z66 Do not resuscitate; Z87.442 Personal history of urinary calculi; Z90.49 Acquired absence of other specified parts of digestive tract; Z98.49 Cataract extraction status, unspecified eye; Z79.82 Long term (current) use of aspirin; Z79.899 Other long term (current) drug therapy; W18.30XA Fall on same level, unspecified, initial encounter; Y93.9 Activity, unspecified; Y99.8 Other external cause status; Y92.129 Unspecified place in nursing home as the place of occurrence of the external cause

== ENCOUNTER → 2022-06-27 | Outpatient (REF) | payer MEDICARE, BC ==
[~2022-06-27] MED LIST changes: +ASPI81TAEC PO
== END ==
LOC: SKLAB8 08:00
PROVIDERS: ATTEND Internal Medicine
DX: S72.002A Fracture of unspecified part of neck of left femur, initial encounter for closed fracture (principal)